=== PATIENT | female | born 2000 | race Caucasian/White ===

== ENCOUNTER → 2022-01-09 13:45 | Outpatient (ROUT) | payer OTHER, SELFPAY ==
[2022-01-09 16:47] LABS: COVID-19 CEPHEID PCR (VTM/NP) Negative (Negative)
== END ==
PROVIDERS: Visit Provider Otolaryngology
DX: J03.91 Acute recurrent tonsillitis, unspecified (principal); J35.01 Chronic tonsillitis; J36 Peritonsillar abscess; J35.1 Hypertrophy of tonsils; J98.8 Other specified respiratory disorders; Z20.822 Contact with and (suspected) exposure to COVID-19
CPT/HCPCS: U0003; U0005

== ENCOUNTER 2022-01-11 07:03 | Day surgery (SDC) | payer OTHER, SELFPAY ==
[2022-01-08 12:40] VITALS: BMI 26.9
[2022-01-11] VITALS (7 sets, daily range): BP systolic 105–138; BP diastolic 47–82; PULSE 70–91; RESP 14–21; TEMP 35.9–36.3; O2SAT 99–100; BMI 25.7
[2022-01-11] MEDS: LACTATED RINGERS 1,000 ML 42 ML IV (07:33)
--- NOTE | 2022-01-11 08:38 | PM.PREOP ---
Pre-operative Note Interval Note History & Physical reviewed/Exam performed by Physician: Yes Changes to H&P: No
--- NOTE | 2022-01-11 08:40 | PM.HP.1 ---
History of Present Illness History of Present Illness Date Patient Seen: 01/11/22 Time Patient Seen: 08:40 Chief complaint: SDC Narrative: She 21-year-old female smoker last seen in clinic 11/08/2021 with chronic tonsillitis recurrent acute tonsillitis tonsil stones tonsillar hypertrophy and respiratory obstruction, presents for tonsillectomy and possible adenoidectomy as outpatient. No interval health changes since last visit. Patient History Medical History Chronic tonsillitis Respiratory obstruction Tonsil stone Tonsillar hypertrophy Surgical History No pertinent past surgical history Family & Social History Tobacco & Substance use: Tobacco type e-cigarettes Smoking Status Current every day smoker alcohol intake current alcohol intake frequency a few times a week Substance Use Type does not use Meds Home Medications and Allergies Home Medications Medication Instructions Recorded Confirmed Type No Known Home Medications 01/08/22 01/11/22 History Allergies Allergy/AdvReac Type Severity Reaction Status Date / Time No Known Drug Allergies Allergy Verified 01/11/22 07:21 Review of Systems Review of Systems Narrative: Negative except as listed in the HPI Exam Vital Signs (past 8 hours): - 01/11/22 07:28 Temperature 96.7 F L Pulse Rate 91 H Respiratory Rate 16 Blood Pressure 115/80 Pulse Oximetry 100 Oxygen Delivery Method Room Air Oxygen Delivery Method Room Air Narrative Exam Narrative: Well-developed well-nourished female in no acute distress heart regular rate and rhythm without murmur lungs clear to auscultation bilaterally. Assessment & Plan Assessment & Plan narrative: Assessment recurrent acute tonsillitis, chronic tonsillitis, tonsil stones, tonsillar hypertrophy, respiratory obstruction Plan: Following discussion of the material risks benefits complications and alternatives, she elected to proceed with tonsillectomy and possible adenoidectomy as outpatient Time Spent With Patient Critical Care time: I spent a total of [] minutes of critical care time on this patient's care today; this time is exclusive of procedural time.
--- NOTE | 2022-01-11 08:43 | PM.OP.1 ---
Operative Date/Time/Diagnoses Date of procedure: 01/11/22 Time of procedure: 09:40 Pre-op diagnosis: Recurrent acute tonsillitis, chronic tonsillitis, tonsil stone, tonsillar hypertrophy, respiratory obstruction Post-op diagnosis: same Procedure & Clinicians Procedure: Tonsillectomy Same procedure as scheduled: Yes Indications: A 21-year-old female with the above diagnoses incompletely managed with medical therapy presents for the above procedures. Following discussion of the tear risks benefits complications and alternatives, she elected to proceed. Surgeon: Armanod Oliver Click Yes if Unassisted: Yes Anesthesia Type: General and Local Operative Notes Findings: 3+ tonsils, absent adenoids, intact palate, single uvula Estimated Blood Loss (mL): 10 Procedure in detail: Following identification and confirmation of consent the patient was brought to the operating room suite and placed in the supine position. General endotracheal anesthesia was administered. A head wrap, shoulder roll, and mouth gag were placed and a red rubber catheter was inserted through the nostril and out the mouth to retract the soft palate. No significant adenoid tissue was present. The left tonsil was retracted medially and suction electrocautery on a setting of 30 was used to dissect the tonsil in a subcapsular plane, followed by hemostasis with the same. This process was repeated on the right side with identical findings. The tonsillar fossae were superficially infiltrated bilaterally with a 1:1 mixture of 1% lidocaine and 0.5% Marcaine 1 to [id number] epinephrine. Mouth gag and rubber catheter were removed and the patient was extubated in the operating room and taken to the recovery room in stable condition without known complication. Complications: none Post-operative Condition: stable Disposition: same day surgery Plan for aftercare: Push fluids, alternate Tylenol and Advil every 3 hours for baseline pain control, oxycodone for breakthrough pain. Soft diet 2 full weeks, no heavy lifting or straining 2 weeks.
[2022-01-11] MEDS: LIDOCAINE 1% (PF) 5 ML INJ (09:19)
[2022-01-11] MEDS: BUPIVACAINE 0.5% W/ EPI (PF) 30 ML VIAL INJ (09:19)
[2022-01-11] MEDS: ACETAMINOPHEN 325 MG TABLET 650 MG PO (10:38)
[2022-01-11] MEDS: OXYCODONE IR 5 MG TABLET PO (10:38)
== END 2022-01-11 11:00 | disposition home or self-care (01) ==
PROVIDERS: Referring Provider Otolaryngology; Visit Provider Otolaryngology
PROC: (CPT 42826; principal; 2022-01-11 08:45)
DX: J03.91 Acute recurrent tonsillitis, unspecified (principal); J98.8 Other specified respiratory disorders
CPT/HCPCS: 42826; 81025; J0330; J1100; J2250; J2405; J2704; J3010

== ENCOUNTER 2022-01-15 18:30 | Emergency (ER) | payer OTHER, SELFPAY ==
--- NOTE | 2022-01-15 18:45 | ED_ITS ---
HPI - General Adult General Chief complaint: Recheck/Abnormal Lab/Rx Stated complaint: Recent tonsillectomy/bleeding today Time Seen by Provider: 01/15/22 18:30 History of Present Illness HPI narrative: 21F smoker with history of recent tonsillectomy done here at [facility] on presents by EMS for evaluation of a large amount of bleeding in her throat which medics state is about 300mL that had resolved prior to her arrival. She is not dizzy nor weak or lightheaded. She denies any fever or chills. She is had no cough or shortness of breath. She takes no blood thinners Related Data Home Medications Medication Instructions Recorded Confirmed No Known Home Medications 01/08/22 01/11/22 Allergies Allergy/AdvReac Type Severity Reaction Status Date / Time No Known Drug Allergies Allergy Verified 01/11/22 10:05 Review of Systems Review of Systems Narrative: GENERAL: Denies chills, fatigue, malaise, fever, sweats. HEENT: See HPI RESPIRATORY: Denies dyspnea, cough, wheezing, hemoptysis, sputum. CARDIOVASCULAR: Denies chest pain, palpitations, orthopnea, edema, GASTROINTESTINAL: Denies nausea, vomiting, abdominal pain, diarrhea, constipation, melena. : Denies dysuria, frequency, incontinence, hematuria, urinary retention. MUSCULOSKELETAL: denies weakness, joint pain, or bony pain SKIN: Denies rash, skin lesions, or other NEUROLOGIC: Denies weakness, headache, numbness, change in speech, confusion, seizures, incoordination. PSYCHIATRIC: No concerning psychosocial issues. 12 point review of systems is negative except for those stated above Patient History Medical History Chronic tonsillitis Respiratory obstruction Tonsil stone Tonsillar hypertrophy Surgical History No pertinent past surgical history Social History Smoking Status: Current every day smoker alcohol intake: current Smoking Status: Current every day smoker alcohol intake frequency: a few times a week Substance Use Type: does not use Exam Narrative Exam Narrative: GENERAL: [21] year old patient appears stated age. Well-developed patient, in mild distress. Holding an emesis bag with small amount of fresh blood HEAD: Atraumatic. Normocephalic. EYES: Pupils equal round and reactive. Extraocular motions intact. No scleral icterus. No injection or drainage. ENT: Fresh clots noted on tonsillar bed, no obvious active bleeding Nose without bleeding, purulent drainage. Throat without erythema, tonsillar hypertrophy or exudate. Airway patent. NECK: Trachea midline. Non tender CARDIOVASCULAR: Regular rate and rhythm without murmurs, gallops, or rubs. RESPIRATORY: Clear to auscultation. Breath sounds equal bilaterally. No wheezes, rales, or rhonchi. GASTROINTESTINAL: Abdomen soft, non-tender, nondistended. EXTREMITIES: No edema or joint tenderness. BACK: Nontender without deformity or crepitance. No flank tenderness. NEURO: AOx3. SKIN: No rash or erythema of visible areas Initial Vital Signs Initial Vital Signs: Vital Signs Temperature 97.7 F 01/15/22 18:46 Pulse Rate 76 01/15/22 18:46 Respiratory Rate 18 01/15/22 18:46 Blood Pressure 97/58 L 01/15/22 18:46 Pulse Oximetry 100 01/15/22 18:46 Oxygen Delivery Method 01/15/22 18:46 Course Orders Ordered: Discontinued Medications Tranexamic Acid (Tranexamic Acid 1,000 Mg Vial) 1,000 mg MM NOW ONE Stop: 01/15/22 18:32 Last Admin: 01/15/22 19:46 Dose: 1,000 mg Documented By: Reevaluation(s) Reevaluation #1: Patient has completed aerosolization of TXA, labs repeated Reevaluation #2: Repeat H&H stable, no ongoing bleeding for the duration of her visit Consultations Consultation #1: Discussed with on-call ENT, sure the opinion that no intervention needed. Requests discharge and encouraged his her to follow up with local ENT in the morning Vital Signs Vital signs: Vital Signs - 8 hr 01/15/22 23:18 Pulse Rate 78 Respiratory Rate 16 Blood Pressure 115/74 Pulse Oximetry 99 Oxygen Delivery Method Room Air Medical Decision Making Lab Data Result diagrams: 01/15/22 20:35 01/15/22 18:57 Labs: Lab Results 01/15/22 01/15/22 01/15/22 Range/Units 18:57 18:57 18:57 WBC 7.1 (4.5-11.0) X10^3/uL RBC 3.88 L (4.0-5.2) X10^6/uL Hgb 10.7 L (12.0-16.0) g/dL Hct 31.6 L (36-46) % MCV 81.6 (80-100) fL MCH 27.5 (26-34) PG MCHC 33.7 (30-36) % RDW 12.9 (11.6-14.8) % Plt Count 247 (150-400) X10^3/uL Neut % (Auto) 73.3 (50-75) % Lymph % (Auto) 18.4 L (25-40) % Faulkner % (Auto) 6.7 (3-14) % Eos % (Auto) 1.0 L (2-4) % Baso % (Auto) 0.6 (0-2) % Neut # (Auto) 5200 (7191-5297) /uL Lymph # (Auto) 1300 (4028-1286) /uL Faulkner # (Auto) 500 (0-900) /uL Eos # (Auto) 100 (0-450) /uL Baso # (Auto) 0 (0-100) /uL Sodium 137 (137-145) mmol/L Potassium 4.0 (3.4-5.1) mmol/L Chloride 104 (98-107) mmol/L Carbon Dioxide 24 (22-32) mmol/L BUN 11 (7-17) mg/dL Creatinine 0.70 (0.52-1.04) mg/dL Estimated GFR > 60 (>60) mL/min BUN/Creatinine Ratio 15.7 (6-22) Glucose 81 (70-100) mg/dL Calcium 8.5 (8.4-10.2) mg/dL Blood Type O Positive Antibody Screen Negative 01/15/22 Range/Units 20:35 WBC (4.5-11.0) X10^3/uL RBC (4.0-5.2) X10^6/uL Hgb 10.4 L (12.0-16.0) g/dL Hct 30.2 L (36-46) % MCV (80-100) fL MCH (26-34) PG MCHC (30-36) % RDW (11.6-14.8) % Plt Count (150-400) X10^3/uL Neut % (Auto) (50-75) % Lymph % (Auto) (25-40) % Faulkner % (Auto) (3-14) % Eos % (Auto) (2-4) % Baso % (Auto) (0-2) % Neut # (Auto) (9427-6343) /uL Lymph # (Auto) (0818-0432) /uL Faulkner # (Auto) (0-900) /uL Eos # (Auto) (0-450) /uL Baso # (Auto) (0-100) /uL Sodium (137-145) mmol/L Potassium (3.4-5.1) mmol/L Chloride (98-107) mmol/L Carbon Dioxide (22-32) mmol/L BUN (7-17) mg/dL Creatinine (0.52-1.04) mg/dL Estimated GFR (>60) mL/min BUN/Creatinine Ratio (6-22) Glucose (70-100) mg/dL Calcium (8.4-10.2) mg/dL Blood Type Antibody Screen Discharge Plan Departure Patient Disposition: Home Clinical Impression: Hemorrhage from tonsillar bed Instructions: DI for Post-Surgical Bleeding Activity Restrictions/Additional Instructions: *You have been diagnosed with [post tonsillectomy bleeding. As we discussed your history and physical exam are very reassuring and after multiple hours of observation the bleeding did not recur. Your blood counts were stable and did not change in any meaningful way over the course of her visit. I have discussed your visit with the on-call Ear Nose and Throat surgeon that works with Dr. Oliver] *What to do: *Please continue to take your regular medications as directed. [ ] New medication prescriptions sent to your pharmacy: [ ] [ ] New medication written as a paper prescription [ ] No new medications given *Please follow up with Dr. Oliver, call tomorrow morning for an appointment. Let them know you were seen in the Emergency Department and that we ask that you be seen in follow up. We will electronically transmit a record of today's note *Return to Emergency Department if you should have any new, worsening or concerning symptoms, such as [fever greater than 101 F, shaking chills, wors ening pain, persistent vomiting or other bothersome symptoms] Prescriptions: No Action No Known Home Medications Visit Report Forms: Patient Portal/API
[2022-01-15 18:46] VITALS: BP 97/58; PULSE 76; RESP 18; TEMP 36.5; O2SAT 100
[2022-01-15 19:07] LABS: Add Manual Diff / Slide Review NO; Basophils Absolute Auto 0 /uL (0-100); Basophils Percent Auto 0.6 % (0-2); Eosinophils Absolute Auto 100 /uL (0-450); Hematocrit 31.6 % (36-46); Hemoglobin 10.7 g/dL (12.0-16.0); Lymphocytes Absolute Auto 1300 /uL (1100-4500); Lymphocytes Percent Auto 18.4 % (25-40); Mean Corpuscular HGB Conc 33.7 % (30-36); Mean Corpuscular Hemoglobin 27.5 PG (26-34); Mean Corpuscular Volume 81.6 fL (80-100); Monocytes Absolute Auto 500 /uL (0-900); Monocytes Percent Auto 6.7 % (3-14); Neutrophils Absolute Auto 5200 /uL (1500-7000); Neutrophils Percent Auto 73.3 % (50-75); Platelet Count 247 X10^3/uL (150-400); Red Blood Cell Count 3.88 X10^6/uL (4.0-5.2); Red Cell Distribution Width 12.9 % (11.6-14.8); White Blood Cell Count 7.1 X10^3/uL (4.5-11.0)
[2022-01-15 19:18] LABS: BUN Creatinine Ratio 15.7 (6-22); Blood Urea Nitrogen 11 mg/dL (7-17); Calcium 8.5 mg/dL (8.4-10.2); Carbon Dioxide 24 mmol/L (22-32); Chloride 104 mmol/L (98-107); Estimated Glomerular Filt Rate > 60 mL/min (>60); Glucose 81 mg/dL (70-100); HEMOLYSIS 36 (0-50); Sodium 137 mmol/L (137-145)
[2022-01-15] MEDS: TRANEXAMIC ACID 1,000 MG VIAL 1000 MG MM (19:46)
[2022-01-15 20:43] VITALS: BP 110/57; PULSE 63; RESP 16; O2SAT 98
[2022-01-15 21:05] LABS: Hematocrit 30.2 % (36-46); Hemoglobin 10.4 g/dL (12.0-16.0)
--- NOTE | 2022-01-15 21:17 | PC.NURSE ---
Patient appears more relaxed. No vomiting. She is sitting upright, able to swallow sputum without difficulty. Friend at bedside.
[2022-01-15 22:15] VITALS: BP 110/56; PULSE 67; O2SAT 99
[2022-01-15 22:43] VITALS: BP 106/55; PULSE 79; RESP 16; O2SAT 100
[2022-01-15 23:18] VITALS: BP 115/74; PULSE 78; RESP 16; O2SAT 99
== END 2022-01-15 23:19 | disposition home or self-care (01) ==
PROVIDERS: Emergency Provider Emergency Medicine
DX: J95.830 Postprocedural hemorrhage of a respiratory system organ or structure following a respiratory system procedure (principal); F17.290 Nicotine dependence, other tobacco product, uncomplicated
CPT/HCPCS: 36415; 80048; 85014; 85018; 85025; 86850; 86900; 86901; 99283

== ENCOUNTER → 2023-04-11 08:52 | Outpatient (CLI) | payer OTHER, SELFPAY ==
[2023-04-11 10:16] LABS: Appearance Urine UA SL CLOUDY; Bilirubin Urine UA NEGATIVE (NEGATIVE); Color Urine UA YELLOW; Glucose Urine UA NEGATIVE (Negative); Ketones Urine UA NEGATIVE (NEGATIVE); Leukocyte Esterase Urine UA 2+ (NEGATIVE); Nitrite Urine UA NEGATIVE (Negative); Occult Blood Urine UA TRACE-INTACT (Negative); Protein Urine UA TRACE (Negative); Urobilinogen Urine UA 0.2 E.U./dL (0.2)
[2023-04-11 10:24] LABS: Add Manual Diff / Slide Review NO; Basophils Absolute Auto 0 /uL (0-100); Basophils Percent Auto 0.3 % (0-2); Eosinophils Absolute Auto 100 /uL (0-450); Eosinophils Percent Auto 0.9 % (2-4); Hematocrit 38.7 % (36-46); Hemoglobin 13.2 g/dL (12.0-16.0); Lymphocytes Absolute Auto 1500 /uL (1100-4500); Lymphocytes Percent Auto 15.8 % (25-40); Mean Corpuscular HGB Conc 34.1 % (30-36); Mean Corpuscular Hemoglobin 28.2 PG (26-34); Mean Corpuscular Volume 82.7 fL (80-100); Monocytes Absolute Auto 600 /uL (0-900); Monocytes Percent Auto 6.1 % (3-14); Neutrophils Absolute Auto 7400 /uL (1500-7000); Neutrophils Percent Auto 76.9 % (50-75); Platelet Count 300 X10^3/uL (150-400); Red Blood Cell Count 4.68 X10^6/uL (4.0-5.2); Red Cell Distribution Width 14.1 % (11.6-14.8); White Blood Cell Count 9.6 X10^3/uL (4.5-11.0)
[2023-04-11 10:30] LABS: Bacteria Urine Many (>30); Culture Indicated Urine Cult Not Indicated; RBC Urine None Seen (0-5/HPF); Squamous Epithelial Cell Urine 10-30 /HPF (0-5/HPF); WBC Urine 1-5/HPF (0-5/HPF)
[2023-04-11 11:29] LABS: Urine N gonorrhoeae NOT DETECTED
[2023-04-11 11:30] LABS: Urine Chlamydia NOT DETECTED
[2023-04-11 11:38] LABS: Hepatitis B Surface Antigen NEGATIVE s/c (NEGATIVE); Rubella Antibody IgG 14.8 IU/mL (>15)
[2023-04-11 11:47] LABS: HIV 1 & 2 Ab/Ag 4th Gen Combo NEGATIVE (NEGATIVE); Hep C Virus Ab w/Reflex Quant NEGATIVE s/c (NEGATIVE)
[2023-04-12 08:12] LABS: RPR Screen Non Reactive (Non Reactive)
[2023-04-12 08:36] LABS: Varicella IgG Antibody 665 index (Immune >165)
== END ==
LOC: LAB 08:54
PROVIDERS: Referring Provider Family Medicine; Visit Provider Family Medicine
DX: Z34.01 Encounter for supervision of normal first pregnancy, first trimester (principal)
CPT/HCPCS: 36415; 80055; 81003; 81015; 86787; 86803; 86850; 86900; 86901; 87086; 87389; 87491; 87591

== ENCOUNTER → 2023-06-04 11:04 | Outpatient (CLI) | payer OTHER, SELFPAY ==
[2023-06-07 01:06] LABS: AFP, Serum 71.5 ng/mL (.); Estriol, Free 2.57 ng/mL (.); Inhibin A, Dimeric 343.92 pg/mL (.); Inhibin A, MoM 2.54 (.); Maternal Ethnicity Caucasian (.); Maternal Weight 196 lbs (.); Number of Fetuses No (.); OSBR Risk 1 IN 1442 (.); Results Report (.); Test Results *Screen Negative* (.); hCG, MoM 1.17 (.); hCG, Serum 27186 mIU/mL (.)
== END ==
PROVIDERS: Referring Provider Family Medicine; Visit Provider Family Medicine
DX: Z34.00 Encounter for supervision of normal first pregnancy, unspecified trimester (principal)
CPT/HCPCS: 36415; 82105; 82677; 84702; 86336

== ENCOUNTER → 2023-06-14 10:07 | Outpatient (CLI) | payer OTHER, SELFPAY ==
--- NOTE | 2023-06-14 10:07 | DI.US.S_ITS ---
PROCEDURE: US OB >= 14 WEEKS FETUS INDICATIONS: anatomy OUTSIDE/PRIOR DATING DATA: Last menstrual period (LMP): Unknown. LMP-based estimated date of delivery (DANIEL): 10/24/2023. First dating scan (date and location): 04/08/2019 for. Estimated date of delivery (DANIEL) from first dating scan: 11/03/2023. The calculations are made using the ultrasound DANIEL of 11/03/2023. TECHNIQUE: Real-time scanning was performed of the fetus, with image documentation and biometric measurements. Endovaginal scanning: Not performed. COMPARISON: None. FINDINGS: General: A single living intrauterine gestation is present. Presentation: Breech. Placenta: Placental position is posterior, without previa. Amniotic fluid index: 7.9 cm, normal range is 5-24 cm. Single deepest vertical pocket is 2.8 cm. heart rate: 144 beats per minute. Maternal cervical canal: 3.8 cm long. Normal lower limit is 2.5 cm. biometrics: Biparietal diameter: 4.5 cm, 19 weeks 4 days Head circumference: 17.8 cm, 20 weeks 2 days Abdominal circumference: 14.4 cm, 19 weeks 5 days Femur length: 3.2 cm, 19 weeks 6 days Clinically estimated gestational age: 19 weeks 5 days Composite gestational age from present scan: 19 weeks 6 days Estimated weight and percentile: 317 g, 54th percentile Anatomic survey: Neuro: Ventricles are non-dilated at less than 10 mm. Cisterna magna is normal at 3-11 mm. Cerebellum is normal in size and morphology. Nuchal skin fold: Normal at less than 6 mm between 14-21 weeks gestational age. Face: Nose and lips, facial profile are normal. Spine: No evidence for spina bifida. Heart: 4-chambered heart is present, with normal ventricular outflow tracts. Diaphragm: Diaphragm is intact. Stomach: Left-sided stomach is present. Kidneys: No hydronephrosis. Normal is less than 5 mm in 2nd trimester, less than 7 mm in 3rd trimester. Cord: 3-vessel cord has orthotopic insertion. Bladder: Normal in size. Extremities: All 4 extremities identified. IMPRESSION: 1. Romo living intrauterine at 19 weeks 6 days based on today's ultrasound. This is concordant with the prior dating. Fetus is in the 54th percentile for weight. 2. Normal placenta. Amniotic fluid index 7.9 cm. Lower end of normal. 3. Normal and complete anatomic survey. We strive to produce accurate, complete, and clear reports of imaging services. To assist us in improving patient care, this report was composed using standard report templates and voice recognition software. Therefore, it may contain abnormal punctuation, insertions and/or omissions. Occasional wrong-word or sound-alike substitutions may occur. Though we review the report and make efforts to correct it, we do recommend that the report be read carefully in proper context to recognize any text inaccuracies. Dictated by: Durga Garner M.D. on 06/14/2023 at 13:54 Approved by: Durga Garner M.D. on 06/14/2023 at 14:04
== END ==
LOC: US 10:07
PROVIDERS: Referring Provider Family Medicine; Visit Provider Family Medicine
DX: Z34.02 Encounter for supervision of normal first pregnancy, second trimester (principal); Z3A.19 19 weeks gestation of pregnancy
CPT/HCPCS: 76811

== ENCOUNTER → 2023-08-13 09:27 | Outpatient (CLI) | payer OTHER, SELFPAY ==
[2023-08-13 11:32] LABS: Add Manual Diff / Slide Review NO; Basophils Absolute Auto 0 /uL (0-100); Basophils Percent Auto 0.2 % (0-2); Eosinophils Absolute Auto 100 /uL (0-450); Eosinophils Percent Auto 1.2 % (2-4); Hematocrit 30.6 % (36-46); Hemoglobin 10.5 g/dL (12.0-16.0); Lymphocytes Absolute Auto 1300 /uL (1100-4500); Mean Corpuscular HGB Conc 34.3 % (30-36); Mean Corpuscular Hemoglobin 29.2 PG (26-34); Mean Corpuscular Volume 85.1 fL (80-100); Monocytes Absolute Auto 800 /uL (0-900); Monocytes Percent Auto 6.7 % (3-14); Neutrophils Absolute Auto 9700 /uL (1500-7000); Neutrophils Percent Auto 80.9 % (50-75); Platelet Count 258 X10^3/uL (150-400); Red Cell Distribution Width 13.6 % (11.6-14.8)
[2023-08-13 11:45] LABS: GTT (PREG) 1 Hour PP 50gm Dose 137 mg/dL (76-139)
== END ==
PROVIDERS: Referring Provider Family Medicine; Visit Provider Family Medicine
DX: Z34.00 Encounter for supervision of normal first pregnancy, unspecified trimester (principal)
CPT/HCPCS: 36415; 82950; 85025; 86850

== ENCOUNTER → 2023-08-19 08:40 | Outpatient (CLI) | payer OTHER, SELFPAY ==
--- NOTE | 2023-08-19 08:41 | DI.US.S_ITS ---
PROCEDURE: US OB LIMITED INDICATIONS: growth u/s for size > dates OUTSIDE/PRIOR DATING DATA: Last menstrual period (LMP): 01/27/2026 LMP-based estimated date of delivery (DANIEL): 10/24/2023 First dating scan (date and location): 04/08/2023 Estimated date of delivery (DANIEL) from first dating scan: 11/03/2023. The calculations are made using the working DANIEL of 07/23. TECHNIQUE: Real-time scanning was performed of the fetus, with image documentation. Endovaginal scanning: None COMPARISON: None. FINDINGS: A single living intrauterine gestation is present. Presentation: Breech. Placenta: Placental position is posterior fundal, without previa. Amniotic fluid index: 23.6 cm, normal range is 5-24 cm. Single deepest vertical pocket is 7.4 cm. heart rate: 140 beats per minute. Maternal cervical canal: 3.5 cm long. Normal lower limit is 2.5 cm. BPD: 7.3 cm, 29 week 2 day HC: 27.8 cm, 30 week 3 day AC: 26.7 cm, 30 week 5 day FL: 5.8 cm, 30 week 1 day EFW: 1574 g, 83 percentile Clinically estimated gestational age: 29 week 1 day Estimated gestational age from initial scan: 30 week 1 day. IMPRESSION: Single live intrauterine consistent with a 30 week 1 day gestation by current ultrasound. Polyhydramnios. JUAN 23.6 cm, 95th percentile Approved by: Harry Schultz M.D. on 08/19/2023 at 15:46
== END ==
PROVIDERS: Referring Provider Family Medicine; Visit Provider Family Medicine
DX: O40.3XX0 Polyhydramnios, third trimester, not applicable or unspecified (principal); Z3A.30 30 weeks gestation of pregnancy
CPT/HCPCS: 76815

== ENCOUNTER 2023-08-20 09:54 | Outpatient (CLI) | payer OTHER, SELFPAY ==
--- NOTE | 2023-08-20 10:18 | P.TNLD_ITS ---
Visit Information Visit Information Date of evaluation: 08/20/23 Primary OB Provider: Marivel Pablo Comments/Additional reasons for admission: 22yo at 29w2d here for NST for polyhydramnios. [facility] Medical History (Updated 08/20/23 @ 10:16 by Marivel Pablo MD) Anemia (~2022) Respiratory obstruction Tonsillar hypertrophy Tonsil stone Chronic tonsillitis Surgical History (Updated 04/15/23 @ 18:40 by Marnie Madsen) Anesthesia History of tonsillectomy (~12/2021) Family History Mother Mini's thyroiditis Rheumatoid arthritis Grandmother Brain aneurysm History of skin graft Non-healing surgical wound Social History marital status: number of children: 0 household members: spouse lives independently: Yes caregiver/support person: No housing: apartment pets and animals: Yes (2 cats, will wear gloves when managing litter box) education level: college (some college) occupational status: employed (active duty [employer]) current occupational exposures/hazards: Yes (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 ) special vj needs: No travel history: recent (Domestic only) seatbelt use: always helmet use: Yes water heater temp set < 120 deg: Yes working smoke detector in home: Yes fire extinguisher in home: No carbon monox detector in home: Yes firearms in home: No do you feel safe at home: Yes Smoking Status: Former smoker (Quit when she learned that she was ) Tobacco: How many years used: 7 (vaping since age 15) second hand exposure: Yes ( also trying to quit vaping) alcohol intake: former (occasionally when not ) substance use type: does not use during the past year weight has: increased > 10 lbs well-balanced diet: rarely or never (does not eat vegetables, not willing to try to improve this) daily servings fruits/ve-1 (fruit only) caffeine: Yes (~1 cup coffee in AM) Type(s) of exercise: none Evaluation Evaluation Baseline heart rate: 130 Variability: Moderate (11-25) monitor accelerations: Present Monitor Decelerations: Absent Category of Tracing: Reactive Diagnosis, Plan/Disposition Final Diagnosis (1) Polyhydramnios: Status: Acute Plan/Disposition Plan: 22yo at 29w2d here for NST for polyhydramnios. NST reactive. Continue testing. Stable for d/c home. OB Disposition: home
== END 2023-08-20 10:36 | disposition home or self-care (01) ==
LOC: OB 08-21 10:31
PROVIDERS: Referring Provider Family Medicine; Visit Provider Family Medicine
DX: O40.3XX0 Polyhydramnios, third trimester, not applicable or unspecified (principal); Z3A.29 29 weeks gestation of pregnancy
CPT/HCPCS: 59025; G0378; G0379

== ENCOUNTER → 2023-08-22 09:51 | Outpatient (CLI) | payer OTHER, SELFPAY ==
[2023-08-22 11:46] LABS: Glucose Fasting Gestational 83 mg/dL (76-95)
[2023-08-22 13:13] LABS: Glucose Tol Interp,Gestational INTERPRETATION
[2023-08-22 13:22] LABS: Glucose 1 Hour Gest 196 mg/dL (76-180)
[2023-08-22 13:25] LABS: Glucose 2 Hour Gest 185 mg/dL (76-155)
[2023-08-22 15:02] LABS: Glucose 3 Hour Gest 82 mg/dL (76-140)
== END ==
PROVIDERS: Referring Provider Family Medicine; Visit Provider Family Medicine
DX: O99.810 Abnormal glucose complicating pregnancy (principal)
CPT/HCPCS: 36415; 82951; 82952

== ENCOUNTER 2023-08-25 10:22 | Observation (INO) | payer OTHER, SELFPAY ==
--- NOTE | 2023-08-25 11:01 | DI.US.S_ITS ---
PROCEDURE: US OB BIOPHYSICAL PROFILE INDICATIONS: Decreased movement, GDM, polyhydramnios at GA 30+0 wks OUTSIDE/PRIOR DATING DATA: Last menstrual period (LMP): Unknown LMP-based estimated date of delivery (DANIEL): 10/24/2023. First dating scan (date and location): 04/08/2023. Estimated date of delivery (DANIEL) from first dating scan: 11/03/2023. The calculations are made using the working DANIEL of 11/03/2023. TECHNIQUE: Real-time scanning was performed of the fetus, with image documentation and biometric measurements. Biophysical profile was also obtained. Endovaginal scanning: Not performed COMPARISON: Ob ultrasound 08/19/2023, 06/14/2023 FINDINGS: General: A single living intrauterine gestation is present. Presentation: Breech. Placenta: Placental position is posterior fundal , without previa. Amniotic fluid index: 20.2 cm, normal range is 5-24 cm. Single deepest vertical pocket is 5.7 cm. heart rate: 135 beats per minute. Maternal cervical canal: 4.1 cm long, closed. Normal lower limit is 2.5 cm. biometrics: Clinically estimated gestational age: 30 weeks, 0 days Biophysical profile: Tone: 2 points. Movement: 2 points. Respiration: 0 points. Largest pocket of fluid: 2 points. Umbilical artery Doppler: Normal umbilical artery systolic to diastolic ratios. IMPRESSION: Single intrauterine gestation in breech presentation with estimated gestational age of 30 weeks, 0 days. JUAN within normal limits. Biophysical profile score of 6/8 (respirations not visualized). Recommend clinical follow-up. Approved by: Carmela Hernandes M.D.,Ph.D. on 08/25/2023 at 14:00
--- NOTE | 2023-08-25 12:48 | P.TNLD_ITS ---
Visit Information Visit Information Date of evaluation: 08/25/23 Primary OB Provider: Marivel Pablo On-call OB Provider: Donn Sheldon Reason for Evaluation: Yes non-stress test non-stress test reason: decreased movement Comments/Additional reasons for admission: 22-year-old G1 at GA 30+ 0 weeks presenting for decreased movement. Called after hours physician line due to concern for feeling baby move as much as usual since last night. Tried drinking some juice and laying down, only felt 1 or 2 subtle movements this morning so was advised to come in for further evaluation. She denies any vaginal bleeding, leakage of fluid, abdominal pain, pelvic discomfort/contractions, vaginal discharge. complicated by polyhydramnios and recent diagnosis of gestational diabetes with abnormal 3 hour GTT. Current medication includes daily vitamin. [facility] Medical History (Updated 08/25/23 @ 12:54 by Donn Sheldon MD) Anemia (~2022) Respiratory obstruction Tonsillar hypertrophy Tonsil stone Chronic tonsillitis Surgical History (Updated 04/15/23 @ 18:40 by Marnie Madsen) Anesthesia History of tonsillectomy (~12/2021) Family History Mother Mini's thyroiditis Rheumatoid arthritis Grandmother Brain aneurysm History of skin graft Non-healing surgical wound Social History marital status: number of children: 0 household members: spouse lives independently: Yes caregiver/support person: No housing: apartment pets and animals: Yes (2 cats, will wear gloves when managing litter box) education level: college (some college) occupational status: employed (active duty [employer]) current occupational exposures/hazards: Yes (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 ) special vj needs: No travel history: recent (Domestic only) seatbelt use: always helmet use: Yes water heater temp set < 120 deg: Yes working smoke detector in home: Yes fire extinguisher in home: No carbon monox detector in home: Yes firearms in home: No do you feel safe at home: Yes Smoking Status: Former smoker (Quit when she learned that she was ) Tobacco: How many years used: 7 (vaping since age 15) second hand exposure: Yes ( also trying to quit vaping) alcohol intake: former (occasionally when not ) substance use type: does not use during the past year weight has: increased > 10 lbs well-balanced diet: rarely or never (does not eat vegetables, not willing to try to improve this) daily servings fruits/ve-1 (fruit only) caffeine: Yes (~1 cup coffee in AM) Type(s) of exercise: none Review of Systems Review of Systems ROS: Yes All systems reviewed with the patient and are negative except as otherwise documented Objective Imaging US Biophysical Profile: Radiologist's impression: FINDINGS: General: A single living intrauterine gestation is present. Presentation: Breech. Placenta: Placental position is posterior fundal , without previa. Amniotic fluid index: 20.2 cm, normal range is 5-24 cm. Single deepest vertical pocket is 5.7 cm. heart rate: 135 beats per minute. Maternal cervical canal: 4.1 cm long, closed. Normal lower limit is 2.5 cm. biometrics: Clinically estimated gestational age: 30 weeks, 0 days Biophysical profile: Tone: 2 points. Movement: 2 points. Respiration: 0 points. Largest pocket of fluid: 2 points. Umbilical artery Doppler: Normal umbilical artery systolic to diastolic ratios. IMPRESSION: Single intrauterine gestation in breech presentation with estimated gestational age of 30 weeks, 0 days. JUAN within normal limits. Biophysical profile score of 6/8 (respirations not visualized). Recommend clinical follow-up. Approved by: Carmela Hernandes M.D.,Ph.D. on 08/25/2023 at 14:00 Evaluation Evaluation Baseline heart rate: 140 Variability: Moderate (11-25) monitor accelerations: Present Monitor Decelerations: Variable Category of Tracing: Reactive Status: Category l Diagnosis, Plan/Disposition Final Diagnosis (1) Decreased movement affecting management of in third trimester: Status: Acute (2) Polyhydramnios: Status: Acute (3) Gestational diabetes mellitus (GDM): Status: Acute Plan/Disposition Plan: BPP 8/10 (no respirations visualized), NST reactive for GA with appropriate 10x10 accelerations. Discussed normal sleep/wake cycles and normal movements across gestational ages, with the expectation that movement we will be more subtle as progresses due to less room for baby to move. Discharge home with return precautions for recurrence of decreased movement, signs/symptoms of labor. Follow-up with primary OB provider as scheduled. OB Disposition: home
== END 2023-08-25 13:00 | disposition home or self-care (01) ==
PROVIDERS: Admitting Provider Family Medicine; Referring Provider Family Medicine; Visit Provider Family Medicine
DX: O36.8130 Decreased fetal movements, third trimester, not applicable or unspecified (principal); O24.419 Gestational diabetes mellitus in pregnancy, unspecified control; O40.3XX0 Polyhydramnios, third trimester, not applicable or unspecified; Z3A.30 30 weeks gestation of pregnancy
CPT/HCPCS: 59025; 59050; 76819; 93975; G0378; G0379

== ENCOUNTER 2023-08-27 09:46 | Outpatient (CLI) | payer OTHER, SELFPAY | END 2023-08-27 10:42 | disposition home or self-care (01) | LOC: OB 08-28 11:44 | PROVIDERS: Referring Provider Family Medicine; Visit Provider Family Medicine | DX: O24.419 Gestational diabetes mellitus in pregnancy, unspecified control (principal); O40.3XX0 Polyhydramnios, third trimester, not applicable or unspecified; Z3A.30 30 weeks gestation of pregnancy | CPT/HCPCS: 59025; G0378; G0379 ==

== ENCOUNTER → 2023-08-30 14:15 | Outpatient (CLI) | payer OTHER, SELFPAY ==
--- NOTE | 2023-08-30 17:29 | DIAB.GDA ---
Addendum entered by Yessica Heller 09/06/23 15:10: Called pt due to pretty consistent elevations postprandial. FBG all in range. High CHO intake at meals impacting BG. Reports feeling hungry after portioning meals and then snacking on higher CHO foods, ie cereal. Limited veggie intake. Reviewed portion recs and strategies for satiety and spacing out CHO. F/u 1 week. Original Note: Initial Gestational Diabetes Assessment Name: Awilda Tony Date: 08/30/23 Time: 240-330p Dx: Gestational Diabetes Provider: Samy DAINEL: 11/03/23 Weeks: Awilda presents for GDM visit. Reports limited veggie intake. Taking PNV gummy without iron. Low Hct last labs. Endorses fatigue. Denies any pica symptoms. Reports GDM hx with mother's with her sister. Diet recall indicates pretty high CHO intake at some meals, 55g CHO at breakfast but pc number in range unless she adds more CHO to this breakfast. Some elevations with potluck, chipotle, or chocolate milk. Works for [employer]. also and likely to be gone during . It's a boy! Diet Recall: 10-11a: waffles x 2, 2 TBS syrup OR eggs and hines OR romanian yogurt with granola 130-2p: leftovers 5p: 1.5c fruit and 10 crackers 8p: protein, potatoes x 1/2c or rice x 3/4c or mac n cheese x 1c 80oz water Anthropometrics: Ht: 68 Wt: 218# last OB 08/20/23 Prepregnancy wt: 190# Physical Activity: No program. Sometimes walks at work. Self-Monitoring Blood Glucose: Checking FBG and 2 hour pc. FBG in range. Some elevations >120mg/dl after meals. Date Pre Post Pre Post Pre Post HS 08/24 08/25 87 08/26 79 122 130 163 08/27 89 106 87 110 08/27 79 123 101 114 08/28 73 106 135 08/29 106 Diabetes Medications: None Pertinent Labs: Screen 137; OGTT 83, 196H, 185H, 82 Nutrition Rx: Carbohydrates: Meal: 45-g lunch and dinner; 30-45g breakfast Snack: 15-30g Nutrition Diagnosis: Altered nutrition related lab value r/t GDM dx aeb recent OGTT Inadequate iron intake r/t necessitating increased needs, no iron in PNV aeb low Hct and pt report Food and nutrition related knowledge deficit r/t new dx GDM aeb OGTT and diet recall Intervention: This participant was very receptive. Provided appropriate educational handouts. Discussed the following topics: GDM pathophysiology and impact of hyperglycemia on mom and baby Risk for T2DM for mom and baby in the future Ways to reduce risk T2DM Plate Method, meal timing, carb counting, pairing macronutrients and spreading out CHO for better BG management Blood glucose goals (FBG: <95 and 2 hour <120 mg/dL); importance of checking 4x per day (FBG and pc) Impact of macronutrients on blood glucose Recommended servings for carbohydrates at meals and snacks Brainstormed appropriate meal plan based on her food preferences Iron supplement and/or switching to PNV with iron Strategies of increasing veggies she enjoys. Role of physical activity and following provider guidelines for safety Goals: Walk at work Look for iron supplement or switch to PNV with iron Add veggies 1-2x per day Stick to 45g CHO at meals Add protein to breakfast Follow-up: MICHAEL UNDERWOOD follow-up in one week via messaging for BG check and 2 weeks for 1:1 Yessica Heller RDN, KJ Certified Diabetes Care and [employer] T: [phone] F: [phone] [email or web address] Thank you for this referral
== END ==
LOC: DIET 14:16
PROVIDERS: Referring Provider Family Medicine
DX: O24.419 Gestational diabetes mellitus in pregnancy, unspecified control (principal); Z3A.30 30 weeks gestation of pregnancy; Z71.3 Dietary counseling and surveillance
CPT/HCPCS: 97802

== ENCOUNTER 2023-09-03 12:14 | Observation (INO) | payer OTHER, SELFPAY ==
--- NOTE | 2023-09-03 12:32 | PM.OBTRLD ---
Visit Information Visit Information Date of evaluation: 09/03/23 Primary OB Provider: Marivel Pablo Comments/Additional reasons for admission: 22yo at 31w2d here for NST for polyhydramnios. [facility] Medical History (Updated 09/03/23 @ 15:13 by Marivel Pablo MD) Anemia (~2022) Respiratory obstruction Tonsillar hypertrophy Tonsil stone Chronic tonsillitis Surgical History (Updated 04/15/23 @ 18:40 by Marnie Madsen) Anesthesia History of tonsillectomy (~12/2021) Family History Mother Mini's thyroiditis Rheumatoid arthritis Grandmother Brain aneurysm History of skin graft Non-healing surgical wound Social History marital status: number of children: 0 household members: spouse lives independently: Yes caregiver/support person: No housing: apartment pets and animals: Yes (2 cats, will wear gloves when managing litter box) education level: college (some college) occupational status: employed (active duty [employer]) current occupational exposures/hazards: Yes (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 ) special vj needs: No travel history: recent (Domestic only) seatbelt use: always helmet use: Yes water heater temp set < 120 deg: Yes working smoke detector in home: Yes fire extinguisher in home: No carbon monox detector in home: Yes firearms in home: No do you feel safe at home: Yes Smoking Status: Former smoker (Quit when she learned that she was ) Tobacco: How many years used: 7 (vaping since age 15) second hand exposure: Yes ( also trying to quit vaping) alcohol intake: former (occasionally when not ) substance use type: does not use during the past year weight has: increased > 10 lbs well-balanced diet: rarely or never (does not eat vegetables, not willing to try to improve this) daily servings fruits/ve-1 (fruit only) caffeine: Yes (~1 cup coffee in AM) Type(s) of exercise: none Evaluation Evaluation Baseline heart rate: 145 Variability: Moderate (11-25) monitor accelerations: Present Monitor Decelerations: Absent Diagnosis, Plan/Disposition Final Diagnosis (1) Polyhydramnios: Status: Acute Plan/Disposition Plan: 22yo at 31w2d here for NST for polyhydramnios. NST reactive. Continue testing. OB Disposition: home
== END 2023-09-03 12:50 | disposition home or self-care (01) ==
PROVIDERS: Admitting Provider Family Medicine; Referring Provider Family Medicine; Visit Provider Family Medicine
DX: O40.3XX0 Polyhydramnios, third trimester, not applicable or unspecified (principal); Z3A.31 31 weeks gestation of pregnancy
CPT/HCPCS: 59025; G0378; G0379

== ENCOUNTER 2023-09-10 10:46 | Outpatient (CLI) | payer OTHER, SELFPAY | END 2023-09-10 11:22 | disposition home or self-care (01) | LOC: OB 09-11 08:25 | PROVIDERS: Referring Provider Family Medicine; Visit Provider Family Medicine | DX: O40.3XX0 Polyhydramnios, third trimester, not applicable or unspecified (principal); O24.419 Gestational diabetes mellitus in pregnancy, unspecified control; Z3A.32 32 weeks gestation of pregnancy | CPT/HCPCS: 59025; G0378; G0379 ==

== ENCOUNTER 2023-09-13 12:50 | Outpatient (CLI) | payer OTHER, SELFPAY | END 2023-09-13 14:02 | disposition home or self-care (01) | LOC: LABOR 13:10 → OB 09-16 06:19 | PROVIDERS: Referring Provider Family Medicine; Visit Provider Family Medicine | DX: O24.419 Gestational diabetes mellitus in pregnancy, unspecified control (principal); O40.3XX0 Polyhydramnios, third trimester, not applicable or unspecified; Z3A.32 32 weeks gestation of pregnancy | CPT/HCPCS: 59025; 97803; G0378; G0379 ==

== ENCOUNTER 2023-09-17 10:45 | Outpatient (CLI) | payer OTHER, SELFPAY ==
--- NOTE | 2023-09-17 11:32 | PM.OBTRLD ---
Visit Information Visit Information Date of evaluation: 09/17/23 Primary OB Provider: Marivel Pablo Comments/Additional reasons for admission: 22yo at 33w2d here for NST for polyhydramnios. [facility] Medical History (Updated 09/03/23 @ 15:13 by Marivel Pablo MD) Anemia (~2022) Respiratory obstruction Tonsillar hypertrophy Tonsil stone Chronic tonsillitis Surgical History (Updated 04/15/23 @ 18:40 by Marnie Madsen) Anesthesia History of tonsillectomy (~12/2021) Family History Mother Mini's thyroiditis Rheumatoid arthritis Grandmother Brain aneurysm History of skin graft Non-healing surgical wound Social History marital status: number of children: 0 household members: spouse lives independently: Yes caregiver/support person: No housing: apartment pets and animals: Yes (2 cats, will wear gloves when managing litter box) education level: college (some college) occupational status: employed (active duty [employer]) current occupational exposures/hazards: Yes (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 ) special vj needs: No travel history: recent (Domestic only) seatbelt use: always helmet use: Yes water heater temp set < 120 deg: Yes working smoke detector in home: Yes fire extinguisher in home: No carbon monox detector in home: Yes firearms in home: No do you feel safe at home: Yes Smoking Status: Former smoker (Quit when she learned that she was ) Tobacco: How many years used: 7 (vaping since age 15) second hand exposure: Yes ( also trying to quit vaping) alcohol intake: former (occasionally when not ) substance use type: does not use during the past year weight has: increased > 10 lbs well-balanced diet: rarely or never (does not eat vegetables, not willing to try to improve this) daily servings fruits/ve-1 (fruit only) caffeine: Yes (~1 cup coffee in AM) Type(s) of exercise: none Diagnosis, Plan/Disposition Final Diagnosis (1) Polyhydramnios: Status: Acute (2) Decreased movement affecting management of in third trimester: Status: Acute (3) Gestational diabetes mellitus (GDM): Status: Acute Plan/Disposition Plan: 22yo at 33w2d here for NST for polyhydramnios. NST reactive. Continue testing. OB Disposition: home
== END 2023-09-17 11:32 | disposition home or self-care (01) ==
LOC: LABOR 11:10 → OB 09-19 11:55
PROVIDERS: Referring Provider Family Medicine; Visit Provider Family Medicine
DX: O40.3XX0 Polyhydramnios, third trimester, not applicable or unspecified (principal); O24.429 Gestational diabetes mellitus in childbirth, unspecified control; O36.8130 Decreased fetal movements, third trimester, not applicable or unspecified; Z3A.33 33 weeks gestation of pregnancy
CPT/HCPCS: 59025; G0378; G0379

== ENCOUNTER 2023-09-20 10:47 | Observation (INO) | payer OTHER, SELFPAY ==
--- NOTE | 2023-09-20 11:33 | P.TNLD_ITS ---
Visit Information Visit Information Date of evaluation: 09/20/23 Primary OB Provider: Marivel Pablo Comments/Additional reasons for admission: 22yo at 33w5d here for NST for polyhydramnios. [facility] Medical History (Updated 09/17/23 @ 12:16 by Marivel Pablo MD) Anemia (~2022) Respiratory obstruction Tonsillar hypertrophy Tonsil stone Chronic tonsillitis Surgical History (Updated 04/15/23 @ 18:40 by Marnie Madsen) Anesthesia History of tonsillectomy (~12/2021) Family History Mother Mini's thyroiditis Rheumatoid arthritis Grandmother Brain aneurysm History of skin graft Non-healing surgical wound Social History marital status: number of children: 0 household members: spouse lives independently: Yes caregiver/support person: No housing: apartment pets and animals: Yes (2 cats, will wear gloves when managing litter box) education level: college (some college) occupational status: employed (active duty [email or web address]) current occupational exposures/hazards: Yes (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 ) special vj needs: No travel history: recent (Domestic only) seatbelt use: always helmet use: Yes water heater temp set < 120 deg: Yes working smoke detector in home: Yes fire extinguisher in home: No carbon monox detector in home: Yes firearms in home: No do you feel safe at home: Yes Smoking Status: Former smoker (Quit when she learned that she was ) Tobacco: How many years used: 7 (vaping since age 15) second hand exposure: Yes ( also trying to quit vaping) alcohol intake: former (occasionally when not ) substance use type: does not use during the past year weight has: increased > 10 lbs well-balanced diet: rarely or never (does not eat vegetables, not willing to try to improve this) daily servings fruits/ve-1 (fruit only) caffeine: Yes (~1 cup coffee in AM) Type(s) of exercise: none Evaluation Evaluation Baseline heart rate: 130 Variability: Moderate (11-25) monitor accelerations: Present Monitor Decelerations: Absent Category of Tracing: Reactive Diagnosis, Plan/Disposition Final Diagnosis (1) Polyhydramnios: Status: Acute Plan/Disposition Plan: 22yo at 33w5d here for NST for polyhydramnios. NST reactive. Continue testing. OB Disposition: home
== END 2023-09-20 11:35 | disposition home or self-care (01) ==
LOC: LABOR 10:48
PROVIDERS: Admitting Provider Family Medicine; Referring Provider Family Medicine; Visit Provider Family Medicine
DX: O40.3XX0 Polyhydramnios, third trimester, not applicable or unspecified (principal); Z3A.33 33 weeks gestation of pregnancy
CPT/HCPCS: 59025; G0378; G0379

== ENCOUNTER 2023-09-24 10:46 | Outpatient (CLI) | payer OTHER, SELFPAY ==
--- NOTE | 2023-09-24 11:31 | P.TNLD_ITS ---
Visit Information Visit Information Date of evaluation: 09/24/23 Primary OB Provider: Marivel Pablo Comments/Additional reasons for admission: 22yo at 34w2d here for NST for polyhydramnios. [facility] Medical History (Updated 09/17/23 @ 12:16 by Marivel Pablo MD) Anemia (~2022) Respiratory obstruction Tonsillar hypertrophy Tonsil stone Chronic tonsillitis Surgical History (Updated 04/15/23 @ 18:40 by Marnie Madsen) Anesthesia History of tonsillectomy (~12/2021) Family History Mother Mini's thyroiditis Rheumatoid arthritis Grandmother Brain aneurysm History of skin graft Non-healing surgical wound Social History marital status: number of children: 0 household members: spouse lives independently: Yes caregiver/support person: No housing: apartment pets and animals: Yes (2 cats, will wear gloves when managing litter box) education level: college (some college) occupational status: employed (active duty [employer]) current occupational exposures/hazards: Yes (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 ) special vj needs: No travel history: recent (Domestic only) seatbelt use: always helmet use: Yes water heater temp set < 120 deg: Yes working smoke detector in home: Yes fire extinguisher in home: No carbon monox detector in home: Yes firearms in home: No do you feel safe at home: Yes Smoking Status: Former smoker (Quit when she learned that she was ) Tobacco: How many years used: 7 (vaping since age 15) second hand exposure: Yes ( also trying to quit vaping) alcohol intake: former (occasionally when not ) substance use type: does not use during the past year weight has: increased > 10 lbs well-balanced diet: rarely or never (does not eat vegetables, not willing to try to improve this) daily servings fruits/ve-1 (fruit only) caffeine: Yes (~1 cup coffee in AM) Type(s) of exercise: none Evaluation Evaluation Baseline heart rate: 130 Variability: Moderate (11-25) monitor accelerations: Present Monitor Decelerations: Absent Category of Tracing: Reactive Diagnosis, Plan/Disposition Final Diagnosis (1) Polyhydramnios: Status: Acute Plan/Disposition Plan: 22yo at 34w2d here for NST for polyhydramnios. NST reactive. Continue testing. OB Disposition: home
== END 2023-09-24 11:31 | disposition home or self-care (01) ==
LOC: OB 09-26 08:22
PROVIDERS: Referring Provider Family Medicine; Visit Provider Family Medicine
DX: O40.3XX0 Polyhydramnios, third trimester, not applicable or unspecified (principal); Z3A.34 34 weeks gestation of pregnancy
CPT/HCPCS: 59025; G0378; G0379

== ENCOUNTER → 2023-09-25 13:17 | Outpatient (CLI) | payer OTHER, SELFPAY ==
--- NOTE | 2023-09-26 10:04 | DIAB.GDFU ---
Follow-up Gestational Diabetes Assessment Name: Awilda Tony Date: 09/25/23 Time: 130-2p Dx: Gestational Diabetes Provider: Samy DANIEL: 11/03/23 Weeks: 34 Awilda presents for GDM visit. Reports improved CHO portions. More postprandial BG in range as a result, which is much improved from once per day elevations. Getting NSTs for polyhydramnios. Still some high CHO meals per diet journal, ie cinnamon rolls, cereal. Reports plans for 38 week induction. Reports poor sleep recently, may be due to pet sounds at night. Not impacting FBG at this time. Is not avoiding juice and soda. Diet recall and SMBG log indicates she often skips lunch. States at work she may skip lunch due to being busy with appts and forgetting to pack lunch ahead of time. Also reports eating deli meat without heating. Not familiar with listeria precautions per report. Still struggling with adding veggies to meals, though seems to add more at lunch. Diet Recall: -: 2 small pancakes with 3 TBS syrup and breakfast meat OR toast with PB, banana slices and egg 230-3p: nothing or ham sandwich with veggie and side fruit 8-9p: protein, 1c pasta OR steak quesadilla 80oz water, 12oz milk Anthropometrics: Ht: 68 Wt: 225# last OB visit Prepregnancy wt: 190# Physical Activity: Increased walking at work. No intentional exercise, but trying to move more. Self-Monitoring Blood Glucose: Improved BG since reported last week. Much less postprandial elevations and none over 150mg/dl. Date Pre Post Pre Post Pre Post HS 09/18 82 106 106 09/19 81 118 105 111 09/20 83 109 126 09/21 81 141 97 09/22 79 113 108 122 09/23 82 120 103 09/24 81 119 Diabetes Medications: None Pertinent Labs: Screen 137; OGTT 83, 196H, 185H, 82 Nutrition Rx: Carbohydrates: Meal: 45-g lunch and dinner; 30-45g breakfast Snack: 15-30g Nutrition Diagnosis: Altered nutrition related lab value r/t GDM dx aeb recent OGTT Food and nutrition related knowledge deficit r/t new dx GDM aeb OGTT and diet recall- in progress Excessive CHO intake r/t fasting long periods and over consuming thereafter aeb pt report, diet journal and SMBG- in progress Food and nutrition related knowledge deficit r/t no previous education regarding listeria risks aeb pt report and diet recall- new Intervention: This participant was very receptive. Provided appropriate educational handouts. Discussed the following topics: Recent blood sugar results and impact of food and hormones Review of macronutrient recommendations during Strategies for more consistent intake Listeria food safety education Goals: Avoid juice- met Bring lunch to work- improved Eat q 3-4 hours small freq portions- not met Pack lunches before appts- new Heat up lunch meats- new Follow-up: MICHAEL UNDERWOOD follow-up in two weeks Yessica Heller RDN, KJ Certified Diabetes Care and [employer] T: [phone] F: [phone] [email or web address] Thank you for this referral
== END ==
LOC: DIET 13:18
PROVIDERS: Referring Provider Family Medicine
DX: O24.419 Gestational diabetes mellitus in pregnancy, unspecified control (principal); Z3A.34 34 weeks gestation of pregnancy; Z71.3 Dietary counseling and surveillance
CPT/HCPCS: 97803

== ENCOUNTER → 2023-09-26 11:10 | Outpatient (CLI) | payer OTHER, SELFPAY ==
--- NOTE | 2023-09-26 11:11 | DI.US.S_ITS ---
PROCEDURE: US OB FOLLOW UP INDICATIONS: growth OUTSIDE/PRIOR DATING DATA: Last menstrual period (LMP): Unsure. LMP-based estimated date of delivery (DANIEL): 10/27/23. First dating scan (date and location): 04/08/23. Estimated date of delivery (DANIEL) from first dating scan: 11/03/23. The calculations are made using the ultrasound DANIEL of 11/03/23. TECHNIQUE: Real-time scanning was performed of the fetus, with image documentation and biometric measurements. Endovaginal scanning: Not performed COMPARISON: None. FINDINGS: General: A single living intrauterine gestation is present. Presentation: Vertex. Placenta: Placental position is posterior , without previa. Amniotic fluid index: 19.6 cm, normal range is 5-24 cm. Single deepest vertical pocket is 6.0 cm. heart rate: 152 beats per minute. Maternal cervical canal: Closed and 3.6 cm long. Normal lower limit is 2.5 cm. biometrics: Biparietal diameter: 8.6 cm, 34 weeks four days Head circumference: 32.4 cm, 36 weeks five days Abdominal circumference: 32.3 cm, 36 weeks one day Femur length: 6.9 cm, 35 weeks two days Clinically estimated gestational age: 34 weeks four days Composite gestational age from present scan: 35 weeks five days Estimated weight and percentile: 2779 g, 81st percentile Other: Not applicable. IMPRESSION: Single living intrauterine in vertex presentation with composite gestational age by today's measurements of 35 weeks five days, eight days ahead of the expected gestational age. Estimated weight at the 81st percentile. Closed cervix and normal amniotic fluid volume. We strive to produce accurate, complete, and clear reports of imaging services. To assist us in improving patient care, this report was composed using standard report templates and voice recognition software. Therefore, it may contain abnormal punctuation, insertions and/or omissions. Occasional wrong-word or sound-alike substitutions may occur. Though we review the report and make efforts to correct it, we do recommend that the report be read carefully in proper context to recognize any text inaccuracies. Dictated by: Sandee Monreal M.D. on 09/26/2023 at 16:44 Approved by: Sandee Monreal M.D. on 09/26/2023 at 16:48
== END ==
PROVIDERS: Referring Provider Family Medicine; Visit Provider Family Medicine
DX: O40.3XX0 Polyhydramnios, third trimester, not applicable or unspecified; Z3A.35 35 weeks gestation of pregnancy
CPT/HCPCS: 76816

== ENCOUNTER 2023-09-26 11:56 | Outpatient (CLI) | payer OTHER, SELFPAY ==
--- NOTE | 2023-09-26 12:24 | PM.OBTRLD ---
Visit Information Visit Information Date of evaluation: 09/26/23 Primary OB Provider: Marivel Pablo On-call OB Provider: Donn Sheldon Reason for Evaluation: Yes non-stress test non-stress test reason: diabetes Comments/Additional reasons for admission: 22yo at GA 34+4 weeks here for NST for polyhydramnios. [facility] Medical History (Updated 09/17/23 @ 12:16 by Marivel Pablo MD) Anemia (~2022) Respiratory obstruction Tonsillar hypertrophy Tonsil stone Chronic tonsillitis Surgical History (Updated 04/15/23 @ 18:40 by Marnie Madsen) Anesthesia History of tonsillectomy (~12/2021) Family History Mother Mini's thyroiditis Rheumatoid arthritis Grandmother Brain aneurysm History of skin graft Non-healing surgical wound Social History marital status: number of children: 0 household members: spouse lives independently: Yes caregiver/support person: No housing: apartment pets and animals: Yes (2 cats, will wear gloves when managing litter box) education level: college (some college) occupational status: employed (active duty [employer]) current occupational exposures/hazards: Yes (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 ) special vj needs: No travel history: recent (Domestic only) seatbelt use: always helmet use: Yes water heater temp set < 120 deg: Yes working smoke detector in home: Yes fire extinguisher in home: No carbon monox detector in home: Yes firearms in home: No do you feel safe at home: Yes Smoking Status: Former smoker (Quit when she learned that she was ) Tobacco: How many years used: 7 (vaping since age 15) second hand exposure: Yes ( also trying to quit vaping) alcohol intake: former (occasionally when not ) substance use type: does not use during the past year weight has: increased > 10 lbs well-balanced diet: rarely or never (does not eat vegetables, not willing to try to improve this) daily servings fruits/ve-1 (fruit only) caffeine: Yes (~1 cup coffee in AM) Type(s) of exercise: none Evaluation Evaluation Baseline heart rate: 130 Variability: Moderate (11-25) monitor accelerations: Present Monitor Decelerations: Absent Category of Tracing: Reactive Status: Category l Diagnosis, Plan/Disposition Final Diagnosis (1) Polyhydramnios: Status: Acute Plan/Disposition Plan: 22yo at [place] 34+4 weeks here for NST for polyhydramnios. NST reactive. Continue testing. OB Disposition: home
== END 2023-09-26 12:29 | disposition home or self-care (01) ==
LOC: LABOR 12:21 → OB 09-30 06:12
PROVIDERS: Referring Provider Family Medicine; Visit Provider Family Medicine
DX: O40.3XX0 Polyhydramnios, third trimester, not applicable or unspecified (principal); O24.913 Unspecified diabetes mellitus in pregnancy, third trimester; Z3A.34 34 weeks gestation of pregnancy
CPT/HCPCS: 59025; 76816; 84112; G0378; G0379

== ENCOUNTER → 2023-10-07 16:59 | Outpatient (CLI) | payer OTHER, SELFPAY ==
[2023-10-08 15:14] LABS: Strep Grp B PCR POS for Grp B Strep
== END ==
PROVIDERS: Visit Provider Family Medicine
DX: Z34.00 Encounter for supervision of normal first pregnancy, unspecified trimester (principal)
CPT/HCPCS: 87653

== ENCOUNTER → 2023-10-08 10:15 | Outpatient (CLI) | payer OTHER, SELFPAY ==
[2023-10-08 11:03] LABS: Add Manual Diff / Slide Review NO; Basophils Absolute Auto 0 /uL (0-100); Basophils Percent Auto 0.4 % (0-2); Eosinophils Absolute Auto 0 /uL (0-450); Eosinophils Percent Auto 0.5 % (2-4); Hematocrit 30.9 % (36-46); Hemoglobin 10.3 g/dL (12.0-16.0); Lymphocytes Absolute Auto 1200 /uL (1100-4500); Lymphocytes Percent Auto 15.1 % (25-40); Mean Corpuscular HGB Conc 33.2 % (30-36); Mean Corpuscular Hemoglobin 27.3 PG (26-34); Mean Corpuscular Volume 82.2 fL (80-100); Monocytes Absolute Auto 700 /uL (0-900); Monocytes Percent Auto 8.1 % (3-14); Neutrophils Absolute Auto 6100 /uL (1500-7000); Neutrophils Percent Auto 75.9 % (50-75); Platelet Count 251 X10^3/uL (150-400); Red Blood Cell Count 3.77 X10^6/uL (4.0-5.2); Red Cell Distribution Width 14.6 % (11.6-14.8); White Blood Cell Count 8.1 X10^3/uL (4.5-11.0)
[2023-10-08 11:29] LABS: Alanine Aminotransferase 16 IU/L (<35); Albumin 3.1 g/dL (3.5-5.0); Albumin Globulin Ratio 1.1 (1.0-2.8); Alkaline Phosphatase 152 U/L (38-126); Aspartate Aminotransferase 19 IU/L (14-36); BUN Creatinine Ratio 9.1 (6-22); Bilirubin Total 0.4 mg/dL (0.2-1.3); Blood Urea Nitrogen 6 mg/dL (7-17); Calcium 8.7 mg/dL (8.4-10.2); Carbon Dioxide 19 mmol/L (22-32); Chloride 109 mmol/L (98-107); Estimated Glomerular Filt Rate > 60 mL/min (>60); Globulin 2.7 g/dL (1.7-4.1); Glucose 115 mg/dL (70-100); HEMOLYSIS < 15 (0-50); Sodium 136 mmol/L (137-145); Total Protein 5.8 g/dL (6.3-8.2)
[2023-10-08 11:35] LABS: Creatinine Urine Random 136.46 mg/dL; Protein (Total) Urine Random 13 mg/dL (0-12); Protein Creatinine Ratio Urine 0.09 GRAM/24H
== END ==
PROVIDERS: Referring Provider Family Medicine; Visit Provider Family Medicine
DX: O12.00 Gestational edema, unspecified trimester (principal)
CPT/HCPCS: 36415; 80053; 82570; 84156; 85025

== ENCOUNTER → 2023-10-09 10:17 | Outpatient (CLI) | payer OTHER, SELFPAY ==
--- NOTE | 2023-10-09 17:32 | DIAB.GDFU ---
Follow-up Gestational Diabetes Assessment Name: Awilda Tony Date: 10/09/23 Time: 1035-11a Dx: Gestational Diabetes Provider: Samy DANIEL: 11/03/23 Weeks: 36 Awilda presents for GDM visit. Reports recently back from vacation. States she was more active during vacation and continued to try and watch carb portions. Some skipped meals with taking more naps recently. Based on BG provided, no longer having daily elevations. Some concerns for preeclampsia reported, completed labs to r/o. Resolved polyhdramnios per OB report. Pt reports GS indicating 81st percentile, though states less concerning due to higher percentile head circumference, not just wt. Plans to 38 week induction. Anthropometrics: Ht: 68 Wt: 225# last 2 OB visits Prepregnancy wt: 190# Physical Activity: More hiking and swimming while on vacation. Self-Monitoring Blood Glucose: Checking FBG and 2 hour pc. FBG in goal. Some elevations postprandial, though most that are available for review are in goal. Date Pre Post Pre Post Pre Post HS 10/02 83 149 7/5 94 113 132 7/6 89 118 88 7/7 82 96 123 7/8 92 134 115 7/9 86 111 103 7/10 79 Diabetes Medications: None Pertinent Labs: Screen 137; OGTT 83, 196H, 185H, 82 Intervention: This participant was very receptive. Provided appropriate educational handouts. Discussed the following topics: Recent blood sugar results and impact of food and hormones Review of macronutrient recommendations during Benefits, resources, and nutrition for recommendations for nutrition and physical activity recommendations for T2DM risk reduction OGTT at 6-12 weeks Checking blood sugars twice per week (goal: fasting <100 mg/dL and 2 hour pc <140 mg/dL) until 6 week check-up HgA1c q 1-3 years. Goals: Pack lunches before appts- continue Heat up lunch meats- continue Follow Dm risk reduction recs- new Follow-up: MICHAEL UNDERWOOD follow-up prn. Encouraged her to call or message with any questions or f/u needs. Yessica Heller RDN, KJ Certified Diabetes Care and Dog Or Animal Sitter T: [phone] F: [phone] [email or web address] Thank you for this referral
== END ==
PROVIDERS: Referring Provider Family Medicine
DX: O24.419 Gestational diabetes mellitus in pregnancy, unspecified control (principal); Z3A.36 36 weeks gestation of pregnancy; Z71.3 Dietary counseling and surveillance
CPT/HCPCS: G0108

== ENCOUNTER 2023-10-13 11:06 | Outpatient (CLI) | payer OTHER, SELFPAY | END 2023-10-13 11:55 | disposition home or self-care (01) | LOC: OB 10-15 09:25 | PROVIDERS: Referring Provider Student in an Organized Health Care Education/Training Program; Visit Provider Student in an Organized Health Care Education/Training Program | DX: O36.8130 Decreased fetal movements, third trimester, not applicable or unspecified (principal); O24.419 Gestational diabetes mellitus in pregnancy, unspecified control; O40.3XX0 Polyhydramnios, third trimester, not applicable or unspecified; Z3A.37 37 weeks gestation of pregnancy | CPT/HCPCS: 59025; 84112; G0378; G0379 ==

== ENCOUNTER 2023-10-21 19:02 | Inpatient (IN) | payer OTHER, SELFPAY ==
[2023-10-21 20:43] VITALS: BP 128/62
[2023-10-21 21:00] LABS: Add Manual Diff / Slide Review NO; Basophils Absolute Auto 0 /uL (0-100); Basophils Percent Auto 0.2 % (0-2); Eosinophils Absolute Auto 100 /uL (0-450); Eosinophils Percent Auto 0.6 % (2-4); Hematocrit 30.5 % (36-46); Lymphocytes Absolute Auto 1300 /uL (1100-4500); Lymphocytes Percent Auto 14.2 % (25-40); Mean Corpuscular Hemoglobin 26.8 PG (26-34); Mean Corpuscular Volume 81.1 fL (80-100); Monocytes Absolute Auto 700 /uL (0-900); Monocytes Percent Auto 7.7 % (3-14); Neutrophils Absolute Auto 7200 /uL (1500-7000); Neutrophils Percent Auto 77.3 % (50-75); Platelet Count 240 X10^3/uL (150-400); Red Blood Cell Count 3.76 X10^6/uL (4.0-5.2); Red Cell Distribution Width 15.4 % (11.6-14.8); White Blood Cell Count 9.3 X10^3/uL (4.5-11.0)
[2023-10-21] MEDS: miSOPROStoL 25 MCG TABLET 50 MCG PO (21:15)
[2023-10-22] MEDS: AMPICILLIN 2,000 MG in SODIUM CHLORIDE 0.9% 100 ML 200 MG IV (05:54)
--- NOTE | 2023-10-22 08:11 | PM.OBHP.IH.1 ---
OB HPI Date/Time Date of admission: 10/21/23 Date Patient Seen: 10/22/23 History of Present Condition Chief complaint: Induction DANIEL Calculator Estimated Delivery Date Method Current WG Current Estimate 11/03/23 Manual 38w 2d Final DANIEL - ALKA Other Estimates 10/24/23 LMP (Certain) 39w 5d 11/03/23 Ultrasound #1 38w 2d Estimated Gestational Age (weeks): 38w2d : 1 Para: 0 Narrative: Pt is a 22yo at 38w2d here for IOL due to uncontrolled GDM and LGA. The pt denies any vaginal bleeding, LOF, or contractions. She is feeling her baby move regularly. Her was complicated by GDM, initially with excellent diet control however in the weeks prior to IOL with rising blood sugars. The pts baby is also noted to be LGA. She had polyhydramnios earlier in that resolved in the mid-3rd trimester. care: good care, initiated at week # (10) and pounds weight gain (36) Dating criteria OB: based on 1st trimester US only Ultrasounds: normal 1st trimester US and normal mid trimester US Obstetrical complications: gestational diabetes and other (LGA, polyhydramnios) Medical complications OB: none Indications Indication for induction OB: gestational diabetes Preadmission Labs Last OB Lab Results: Blood Type O Positive 10/21/23 20:30 Antibody Screen Negative 10/21/23 20:30 Hct 30.5 % (36-46) L 10/21/23 20:30 Hgb 10.0 g/dL (12.0-16.0) L 10/21/23 20:30 Hep Bs Antigen Negative s/c (NEGATIVE) 04/11/23 09:10 Hepatitis C Antibody Negative s/c (NEGATIVE) 04/11/23 09:10 Rubella Antibody 14.8 IU/mL (>15) L 04/11/23 09:10 VZV IgG Antibody 665 index (Immune >165) 04/11/23 09:10 Glucose 1 Hr 50 gm 137 mg/dL (76-139) 08/13/23 09:43 Group B Strep (PCR) Pos for grp b strep H 10/07/23 16:59 Glucose Tolerance Testing: Fasting (83), 1 hr (196), 2 hr (185) and 3 hr (82) -: Chlamydia screen: negative, Gonorrhea screen: negative and Urine: negative Genetic Screens: Quad screen: Normal External Labs -: Urine: negative Evaluation Evaluation Baseline heart rate: 130 Variability: Moderate (11-25) monitor accelerations: Present Monitor Decelerations: Absent Contraction Frequency (minutes): 5 Uterine Contraction Intensity: Mild Status: Category l Dilation (cm): 1.5 Effacement (%): 80 Dilation: 1-2 cm Effacement: >/=80% station: -2 Position of cervix: mid Consistency: soft Simons score: 8 [facility] Medical History (Updated 09/17/23 @ 12:16 by Marivel Pablo MD) Anemia (~2022) Respiratory obstruction Tonsillar hypertrophy Tonsil stone Chronic tonsillitis Surgical History (Updated 04/15/23 @ 18:40 by Marnie Madsen) Anesthesia History of tonsillectomy (~12/2021) Family History Mother Mini's thyroiditis Rheumatoid arthritis Grandmother Brain aneurysm History of skin graft Non-healing surgical wound Social History marital status: number of children: 0 household members: spouse lives independently: Yes caregiver/support person: No housing: apartment pets and animals: Yes (2 cats, will wear gloves when managing litter box) education level: college (some college) occupational status: employed (active duty [employer]) current occupational exposures/hazards: Yes (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 ) special vj needs: No travel history: recent (Domestic only) seatbelt use: always helmet use: Yes water heater temp set < 120 deg: Yes working smoke detector in home: Yes fire extinguisher in home: No carbon monox detector in home: Yes firearms in home: No do you feel safe at home: Yes Smoking Status: Former smoker Tobacco: How many years used: 7 (vaping since age 15) second hand exposure: Yes ( also trying to quit vaping) alcohol intake: former (occasionally when not ) substance use type: does not use during the past year weight has: increased > 10 lbs well-balanced diet: rarely or never (does not eat vegetables, not willing to try to improve this) daily servings fruits/ve-1 (fruit only) caffeine: Yes (~1 cup coffee in AM) Type(s) of exercise: none Meds Home Medications and Allergies Home Medications Medication Instructions Recorded Confirmed Type cetirizine 10 mg tablet (All Day 10 mg PO DAILY PRN 03/05/23 10/16/23 History Allergy (cetirizine)) vit no.95-ferrous 1 tab PO DAILY 03/05/23 10/16/23 History fumarate 28 mg-folic acid 800 mcg tablet ( Multivitamins) blood-glucose meter #1 ea 08/23/23 10/16/23 Rx blood sugar diagnostic (FreeStyle #100 ea 09/27/23 10/16/23 Rx Test strips) metronidazole 500 mg tablet 500 mg PO BID #14 tabs 10/08/23 10/16/23 Rx Allergies Allergy/AdvReac Type Severity Reaction Status Date / Time No Known Drug Allergies Allergy Verified 10/16/23 11:09 OB Exam Resp Effort & Inspection: normal respiratory effort Auscultation: clear to auscultation bilaterally Cardio Rate: regular rate Rhythm: regular rhythm Heart Sounds: S1 normal, S2 normal and no murmurs GI Inspection: non-distended Palpation: Yes soft and No tender Presentation: vertex Objective Labs 10/21/23 20:30 Labs: Laboratory Results - last 24 hr 10/21/23 20:30 WBC 9.3 RBC 3.76 L Hgb 10.0 L Hct 30.5 L MCV 81.1 MCH 26.8 MCHC 33.0 RDW 15.4 H Plt Count 240 Neut % (Auto) 77.3 H Lymph % (Auto) 14.2 L [place] % (Auto) 7.7 Eos % (Auto) 0.6 L Baso % (Auto) 0.2 Neut # (Auto) 7200 H Lymph # (Auto) 1300 [place] # (Auto) 700 Eos # (Auto) 100 Baso # (Auto) 0 Blood Type O Positive Antibody Screen Negative Assessment and Plan Assessment and Plan Assessment and Plan narrative: 22yo at 38w2d here for IOL due to uncontrolled GDM and LGA. GBS positive, Rh positive. Pt received one dose of cytotec overnight, Simons score now 8. - Initiate pitocin, titrate as tolerated - GBS positive, start ampicillin prophylaxis - FHT reassuring - Epidural for pain control when desired - q4hr blood sugar checks Time-Based Coding :: [TOTAL MINUTES] spent with patient and on the chart (including review of chart, obtaining history, exam, reviewing outside data, placing orders, documenting exam and treatment plan, and counseling patient) on [DATE].
[2023-10-22] MEDS: LACTATED RINGERS 1,000 ML 100 ML IV ×2 (08:21→14:21)
[2023-10-22] MEDS: OXYTOCIN PREMIX 30 UNIT/500 ML PLAST..BAG IV (08:22)
[2023-10-22] MEDS: AMPICILLIN 1,000 MG in SODIUM CHLORIDE 0.9% 100 ML 200 MG IV ×3 (10:00→18:51)
--- NOTE | 2023-10-22 13:53 | PM.AN.REGBLK ---
Regional Block Pre-procedure PMH/ROS narrative: 22yo at 38+2for IOL due to uncontrolled GDM and LGA. No medical complications. PSH/Anesthesia history narrative: tonsillectomy. No anesthetic problems. Exam narrative: MP 1 ASA Class: II Labs: Hct 30.5 % (36-46) L 10/21/23 20:30 Plt Count 240 X10^3/uL (150-400) 10/21/23 20:30 Medications: Current Medications Generic Name Dose Route Start Last Admin Trade Name Freq PRN Reason Stop Dose Admin Calcium Carbonate 1,000 mg 10/21/23 19:23 Calcium Carbonate 500 Mg Tab PO Q4HR PRN Dyspepsia Carboprost Tromethamine 250 mcg 10/21/23 19:23 Carboprost 250 Mcg/Ml Ampul IM Q90M PRN Bleeding Fentanyl 50 mcg 10/21/23 19:23 Fentanyl 100 Mcg/2 Ml Inj IV Q1H PRN Pain, Moderate (4-6) Oxytocin/Lactated Ringer's 30 unit in 500 mls @ 200 mls/hr 10/21/23 19:23 Oxytocin Premix IV CONT PRN Bleeding Protocol Tranexamic Acid 1,000 mg/ 100 mls @ 600 mls/hr 10/21/23 19:23 Sodium Chloride IV NOW PRN Bleeding Oxytocin/Lactated Ringer's 30 unit in 500 mls @ 2 mls/hr 10/21/23 19:30 10/22/23 08:22 Oxytocin Premix IV 2 milliunit/min TITRATE BI 2 mls/hr Administration Protocol 2 MILLIUNIT/MIN Ampicillin Sodium 1,000 mg/ 100 mls @ 200 mls/hr 10/22/23 00:00 10/22/23 10:00 Sodium Chloride IV 200 mls/hr Q4H BI Administration Lactated Ringer's 1,000 mls @ 100 mls/hr 10/21/23 19:30 10/22/23 08:21 Lactated Ringers IV 100 mls/hr CONT BI Administration Lidocaine HCl 20 ml 10/21/23 19:23 Lidocaine 1% 20 Ml INJ INTRA-OP PRN Post Delivery Methylergonovine Maleate 0.2 mg 10/21/23 19:23 Methylergonovine 0.2 Mg Tablet PO Q6HR PRN Heavy Bleeding Methylergonovine Maleate 0.2 mg 10/21/23 19:23 Methylergonovine 0.2 Mg/Ml Vial IM NOW PRN Bleeding Misoprostol 800 mcg 10/21/23 19:23 Misoprostol 200 Mcg Tablet CA NOW PRN Bleeding Misoprostol 400 mcg 10/21/23 19:23 Misoprostol 200 Mcg Tablet SL NOW PRN Bleeding Misoprostol 50 mcg 10/21/23 19:30 10/21/23 21:15 Misoprostol 25 Mcg Tablet PO 50 mcg Q4H BI Administration Naloxone HCl 0.2 mg 10/21/23 19:23 Naloxone 0.4 Mg/Ml Vial IV Q2MIN PRN Opiate Reversal Ondansetron HCl 4 mg 10/21/23 19:23 Ondansetron 4 Mg/2 Ml Inj IV Q4HR PRN Nausea And Vomiting Oxytocin 10 unit 10/21/23 19:23 Oxytocin 10 Unit/Ml Vial IM NOW PRN Bleeding Allergies: Allergies Allergy/AdvReac Type Severity Reaction Status Date / Time No Known Drug Allergies Allergy Verified 10/16/23 11:09 Procedure Insertion date: 10/22/23 Insertion time: 14:10 Prep/Local: betadine x3 and 1% lidocaine Interspace: L3-4 Patient position: sitting Needle: 18 gauge Hustead (CSE: 27g Pencan through Hustead, clear CSF, 1mL 0.25% bupiv MPF) Loss of resistance with: saline JUNG at (cm): 6 Catheter placed at SKIN (cm): 13 Catheter in SPACE (cm): 7 Insertion: No CSF, No Blood, No Paresthesia with insertion, No Paresthesia with injection and No Test dose reaction Initial Medications TEST DOSE time: 14:12 TEST DOSE: 1.5% lidocaine with epinephrine 1:200k (mL): 3 BOLUS DOSE time: 14:22 BOLUS DOSE (mL): 4 BOLUS DOSE med: other (infusate) Infusion INFUSION: 0.125% bupivacaine and with fentanyl 2 mcg/mL Initial rate (mL/hr): 9 Subsequent interventions: PCEA@9+4 Post-procedure Anesthesia date START: 10/22/23 Anesthesia time START: 14:00 Anesthesia date END: 10/22/23 Anesthesia time END: 21:14 Post-procedure Anesthesia Assessment: Yes CV function: HR/BP stable, Yes Resp function: RR/sat/airway adequate, Yes Post-op hydration adequate, Yes Pain control adequate, Yes Nausea & vomiting absent, Yes Temperature > 36 C, Yes Mental status appropriate and No Anesthesia complications
--- NOTE | 2023-10-22 14:59 | PM.OBPNLAB ---
Date/Time Date Patient Seen: 10/22/23 Time Patient Seen: 13:00 Pain Control Pain control: tolerating well Pelvic Exam Dilation (cm): 1.5 Effacement (%): 80 station: -2 Contractions Monitor mode: External Pitocin rate (mU/min): 10 Contraction frequency (min): 3 Contraction intensity: Mild Status status: Category l Heart Rate Baseline: 130 Monitor Accelerations: Present Monitor Decelerations: Absent Monitor Variability: Moderate Assessment and Plan Comments: 22yo at 38w2d here for IOL for uncontrolled GDM and LGA. GBS positive, Rh positive. Received 1 dose of cytotec overnight, now on pitocin without significant cervical change. After informed consent, AROM performed with clear fluid present. - Continue pitocin, titrate as tolerated - GBS positive, has received adequate prophylaxis, continue Ampicillin - Epidural for pain control when desired - FHT reassuring
[2023-10-22] MEDS: FENT 2MCG/ML BUPIV 0.125% EPI 200 MCG/100 ML PLAST..BAG 8 MCG EPIDURAL (20:15)
--- NOTE | 2023-10-22 21:51 | P.PCNOB_ITS ---
Labor & Delivery Delivery date: 10/22/23 Induction method: per pitocin protocol Delivery augmentation: rupture of membranes Delivery monitor: external FHT and external uterine Route of delivery: Episiotomy description: None L&D Laceration Description: Perineal - 2nd Degree and Labial Quantitative Blood Loss: 996 Anesthesia Type: Epidural Complications: hemorrhage Narrative: PROCEDURE: at 38w2d presented for IOL for uncontrolled GDM and LGA and was admitted to Labor and Delivery. She received cytotec for induction, followed by pitocin. AROM occured at 12:53 with clear fluid. The patient progressed through the 1st stage over 7 hours. Pain was controlled with an epidural. The patient progressed through the 2nd stage over 1 hour and delivered a viable male infant with APGARs 8/9 at 21:04 via . The cord was cut and clamped after it stopped pulsating. The placenta delivered with gentle cord traction, and appeared complete. The perineum and vagina were inspected with 2nd degree perineal laceration and left labial laceration that were bleeding heavily. Bleeding was stable after usual repair, however there was substantial blood loss during the repair. Needle and sponge counts were correct.? The vagina was inspected and no items w ere left in situ. Awilda was doing well with Jose Alberto, her and her , Srinivas, at bedside. PREPROCEDURE DIAGNOSIS: Intrauterine at 38w2d Uncontrolled GDM LGA GBS positive RH positive POSTPROCEDURE DIAGNOSIS: Intrauterine at 38w2d, delivered Same as preprocedure hemorrhage Baby 1: gender: Male Presentation: vertex Position: Left Occiput Anterior Placenta delivery description: Spontaneous Cord Vessel Description: 3 Vessels score (1 min): 8 score (5 min): 9 weight: 7 lb 11.706 oz Plan for aftercare: Routine care
[2023-10-23] MEDS: WITCH HAZEL/GLYCERIN PADS 1 EACH TOP (02:50)
[2023-10-23] MEDS: ACETAMINOPHEN 325 MG TABLET 650 MG PO ×2 (02:50→08:55)
[2023-10-23] MEDS: IBUPROFEN 600 MG TABLET PO ×2 (02:50→08:54)
[2023-10-23 06:40] LABS: Add Manual Diff / Slide Review NO; Basophils Absolute Auto 0 /uL (0-100); Basophils Percent Auto 0.2 % (0-2); Eosinophils Absolute Auto 0 /uL (0-450); Eosinophils Percent Auto 0.2 % (2-4); Hematocrit 24.5 % (36-46); Hemoglobin 8.1 g/dL (12.0-16.0); Lymphocytes Absolute Auto 1200 /uL (1100-4500); Lymphocytes Percent Auto 7.4 % (25-40); Mean Corpuscular HGB Conc 33.1 % (30-36); Mean Corpuscular Hemoglobin 26.5 PG (26-34); Mean Corpuscular Volume 80.2 fL (80-100); Monocytes Absolute Auto 1300 /uL (0-900); Monocytes Percent Auto 8.1 % (3-14); Neutrophils Absolute Auto 13900 /uL (1500-7000); Neutrophils Percent Auto 84.1 % (50-75); Platelet Count 231 X10^3/uL (150-400); Red Blood Cell Count 3.06 X10^6/uL (4.0-5.2); Red Cell Distribution Width 15.2 % (11.6-14.8); White Blood Cell Count 16.5 X10^3/uL (4.5-11.0)
[2023-10-23] MEDS: DOCUSATE 100 MG CAPSULE PO (08:54)
[2023-10-23] MEDS: FERROUS SULFATE 325 MG TABLET PO (08:54)
[2023-10-23] MEDS: PRENATAL VIT,CALC/IRON/FOLIC 1 TABLET 1 TAB PO (08:55)
[2023-10-23 16:56] VITALS: BP 117/55; PULSE 70; RESP 18; TEMP 36.7
--- NOTE | 2023-10-23 17:04 | P.DS_ITS ---
Discharge Providers Provider Date of admission: 10/21/23 19:02 Discharge Date: 10/23/23 Primary care physician: Pallavi MARKS Provider Consults: 10/23/23 21:47 Consult to Junior Systems Engineer Routine Comment: Discharge provider: Marivel Pablo MD Summary Hospital Course Date Patient Seen: 10/23/23 Time Patient Seen: 12:15 Diagnoses: Intrauterine at 38w2d Uncontrolled GDM LGA GBS positive RH positive hemorrhage Hospital Course: The pt presented for IOL due to uncontrolled GDM and LGA. She received cytotec followed by pitocin. AROM was performed with clear fluid present. She had an epidural for pain control. She progressed to complete and had an of a viable baby boy. A 2nd degree perineal and labial laceration were repaired, that were bleeding heavily. , there were no complications. At the time of discharge she was voiding, ambulating, and passing flatus without difficulty. Her lochia was decreasing appropriately. Her pain was well controlled. She was pumping and feeding the baby formula as well. She will f/u in 6 weeks for check. She would like natural methods for contraception, her partner will also be deployed for the next 6 months. Peripartum Data Delivery Method: Natural Vaginal Laceration Description: Perineal - 2nd Degree and Labial Episiotomy description: None Procedures: Spontaneous vaginal delivery complications: none [place] 1: Gender: Male Disposition of : home Status at Discharge Cognitive/behavioral status at discharge: oriented Functional status at discharge: independent ambulation Overall status at discharge: patient is progressing back to baseline Time Spent with Patient Time attestation: Total time spent providing and/or coordinating discharge services: Objective Labs 10/23/23 06:30 Labs: Laboratory Results - last 24 hr 10/23/23 06:30 WBC 16.5 H D RBC 3.06 L Hgb 8.1 L Hct 24.5 L MCV 80.2 MCH 26.5 MCHC 33.1 RDW 15.2 H Plt Count 231 Neut % (Auto) 84.1 H Lymph % (Auto) 7.4 L [place] % (Auto) 8.1 Eos % (Auto) 0.2 L Baso % (Auto) 0.2 Neut # (Auto) 32357 H Lymph # (Auto) 1200 [place] # (Auto) 1300 H Eos # (Auto) 0 Baso # (Auto) 0 Exam Vital Signs (past 8 hours): - 10/23/23 16:56 Temperature 98.0 F Pulse Rate 70 Respiratory Rate 18 Blood Pressure 117/55 L Narrative Exam Narrative: Gen: NAD, sitting comfortably in bed, appears well CV: RRR, no murmurs Resp: clear to auscultation bilaterally Abd: soft, appropriately tender, fundus firm and below the umbilicus, nondistended Ext: no edema Discharge Plan Discharge Plan Patient Disposition: Home Discharge orders & Medications Prescriptions: New acetaminophen 325 mg Tablet 650 mg PO Q6HR PRN (Reason: Pain, Mild (1-3)) Qty: 30 0RF ferrous sulfate 325 mg (65 mg iron) Tablet 325 mg PO DAILY Qty: 30 0RF docusate sodium 100 mg Capsule 100 mg PO DAILY Qty: 30 0RF ibuprofen 600 mg Tablet 600 mg PO Q6HR PRN (Reason: Pain, Mild (1-3)) Qty: 30 0RF Continued (DME) blood-glucose meter Kit See Rx Instructions .Route Qty: 1 0RF Rx Instructions: As directed for four to six times per day testing (DME) FreeStyle Test Strip See Rx Instructions .Route Qty: 100 1RF Rx Instructions: As directed for four times per day blood sugar checks PNV cmb#95-ferrous fumarate-FA [ Multivitamins] 28 mg iron- 800 mcg tablet 1 tab PO DAILY cetirizine [All Day Allergy (cetirizine)] 10 mg tablet 10 mg PO DAILY PRN Discontinued metronidazole 500 mg tablet 500 mg PO BID Qty: 14 0RF Follow up/Referrals: Marivel Pablo MD [Physician] - (6 week Appt w/ Dr. Pablo: Dec.05 @ 2pm) Diet/Activity/Treatments Diet: Diet as Tolerated and Regular Skin/Wound/Dressing Care Report to your healthcare provider any signs of infection, such as:: chills, fever, increased pain and unusual drainage Visit Report/Discharge Packet Instructions: DI for Labor and Delivery, Vaginal Stand Alone Forms: Discharge: Care, Patient Portal/API, Stroke Signs & Symptoms Discharge Data Primary Care Provider: ProviderPallavi
== END 2023-10-23 18:49 | disposition home or self-care (01) | DRG 807 ==
PROVIDERS: Admitting Provider Family Medicine; Referring Provider Family Medicine; Visit Provider Family Medicine
DX: O24.420 Gestational diabetes mellitus in childbirth, diet controlled (principal); Z37.0 Single live birth; O36.63X0 Maternal care for excessive fetal growth, third trimester, not applicable or unspecified; O99.824 Streptococcus B carrier state complicating childbirth; O70.1 Second degree perineal laceration during delivery; Z3A.38 38 weeks gestation of pregnancy
CPT/HCPCS: 36415; 59050; 59200; 59400; 85025; 86850; 86900; 86901; G0379; J0290; J2590

== ENCOUNTER 2023-11-19 16:33 | Emergency (ER) | payer OTHER, SELFPAY ==
[2023-11-19 16:39] VITALS: BP 117/65; PULSE 79; RESP 16; TEMP 37.1; O2SAT 99; BMI 30.4
--- NOTE | 2023-11-19 16:44 | DI.RAD.S_ITS ---
PROCEDURE: XR TOE RT MIN 2V INDICATIONS: stubbed toe/pain TECHNIQUE: 3 views of the 5th toe(s) acquired. COMPARISON: None. FINDINGS: Bones: No fractures or dislocations. No suspicious bony lesions. Soft tissues: No suspicious soft tissue densities. IMPRESSION: No acute bony abnormality. Dictated by: Durga Garner M.D. on 11/19/2023 at 17:35 Approved by: Durga Garner M.D. on 11/19/2023 at 17:36
--- NOTE | 2023-11-19 18:14 | ED.LOWEXIN ---
HPI - Extremity Injury (Lower) General Chief Complaint: Extremity Injury, Lower Stated Complaint: thinks she broke rt 5th toe Time Seen by Provider: 11/19/23 17:58 Source: patient Mode of arrival: Ambulatory History of Present Illness HPI Narrative: Patient is a 23-year-old female who stated that she stubbed her right little toe approximately 2 days ago. Since that time has had increase in pain and swelling and discoloration. Related Data Home Medications Medication Instructions Recorded Confirmed cetirizine 10 mg tablet (All Day 10 mg PO DAILY PRN 03/05/23 10/16/23 Allergy (cetirizine)) vit no.95-ferrous 1 tab PO DAILY 03/05/23 10/16/23 fumarate 28 mg-folic acid 800 mcg tablet ( Multivitamins) Previous Rx's Medication Instructions Recorded blood-glucose meter #1 ea 08/23/23 blood sugar diagnostic (FreeStyle #100 ea 09/27/23 Test strips) acetaminophen 325 mg tablet 650 mg (2 x 325 mg) PO Q6HR PRN 10/23/23 Pain, Mild (1-3) #30 tabs docusate sodium 100 mg capsule 100 mg PO DAILY #30 caps 10/23/23 ferrous sulfate 325 mg (65 mg 325 mg PO DAILY #30 tabs 10/23/23 iron) tablet ibuprofen 600 mg tablet 600 mg PO Q6HR PRN Pain, Mild 10/23/23 (1-3) #30 tabs Allergies Allergy/AdvReac Type Severity Reaction Status Date / Time No Known Drug Allergies Allergy Verified 10/16/23 11:09 Review of Systems Musculoskeletal Musculoskeletal: Reports system reviewed and no additional complaints, except as documented Integumentary/Breasts Skin/Breast: Reports system reviewed and no additional complaints, except as documented Patient History Medical History Anemia (~2022) Respiratory obstruction Tonsillar hypertrophy Tonsil stone Chronic tonsillitis Surgical History (Updated 04/15/23 @ 18:40 by Marnie Madsen) Anesthesia History of tonsillectomy (~12/2021) Family History Mother Mini's thyroiditis Rheumatoid arthritis Grandmother Brain aneurysm History of skin graft Non-healing surgical wound Social History marital status: number of children: 0 household members: spouse lives independently: Yes caregiver/support person: No housing: apartment pets and animals: Yes (2 cats, will wear gloves when managing litter box) education level: college (some college) occupational status: employed (active duty [employer]) current occupational exposures/hazards: Yes (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 ) special vj needs: No travel history: recent (Domestic only) seatbelt use: always helmet use: Yes water heater temp set < 120 deg: Yes working smoke detector in home: Yes fire extinguisher in home: No carbon monox detector in home: Yes firearms in home: No do you feel safe at home: Yes Smoking Status: Former smoker Tobacco: How many years used: 7 (vaping since age 15) second hand exposure: Yes ( also trying to quit vaping) alcohol intake: former (occasionally when not ) substance use type: does not use during the past year weight has: increased > 10 lbs well-balanced diet: rarely or never (does not eat vegetables, not willing to try to improve this) daily servings fruits/ve-1 (fruit only) caffeine: Yes (~1 cup coffee in AM) Type(s) of exercise: none Smoking Status: Former smoker tobacco type: vaping alcohol intake frequency: a few times a week Substance Use Type: does not use Exam Initial Vital Signs Initial Vital Signs: Vital Signs Temperature 98.7 F 11/19/23 16:39 Pulse Rate 79 11/19/23 16:39 Respiratory Rate 16 11/19/23 16:39 Blood Pressure 117/65 11/19/23 16:39 Pulse Oximetry 99 11/19/23 16:39 Oxygen Delivery Method Room Air 11/19/23 16:39 Skin Other: Bruising at the base of the right little toe Extrem Other: Discomfort with palpation of the right little toe Course Orders Ordered: ED Orders 11/19/23 16:44 XR toe RT min 2V Stat Vital Signs Vital signs: Vital Signs - 8 hr 11/19/23 18:47 Pulse Rate 80 Respiratory Rate 16 Blood Pressure 118/65 Pulse Oximetry 99 Oxygen Delivery Method Room Air MDM - Extremity Injury (Lower) Imaging Data Extremity x-ray #1: Radiologist's Impression: PROCEDURE: XR TOE RT MIN 2V INDICATIONS: stubbed toe/pain TECHNIQUE: 3 views of the 5th toe(s) acquired. COMPARISON: None. FINDINGS: Bones: No fractures or dislocations. No suspicious bony lesions. Soft tissues: No suspicious soft tissue densities. IMPRESSION: No acute bony abnormality. MDM Narrative Medical decision making narrative: Neurovascularly intact. No fractures noted on the x-rays. No other injuries from the event. We discussed flaco taping. She can take Tylenol and ibuprofen and ice for comfort. Discharge Plan Departure Patient Disposition: Home Clinical Impression: Contusion of toe of right foot Instructions: Contusion, How to Flaco Tape Activity Restrictions/Additional Instructions: There were no fractures noted on the x-rays. I do recommend that you keep ice over your little toe. You can flaco tape it to the toe next to it if needed. Return to the emergency department for new symptoms. Prescriptions: No Action (DME) blood-glucose meter Kit See Rx Instructions .Route Qty: 1 0RF Rx Instructions: As directed for four to six times per day testing (DME) FreeStyle Test Strip See Rx Instructions .Route Qty: 100 1RF Rx Instructions: As directed for four times per day blood sugar checks PNV cmb#95-ferrous fumarate-FA [ Multivitamins] 28 mg iron- 800 mcg tablet 1 tab PO DAILY cetirizine [All Day Allergy (cetirizine)] 10 mg tablet 10 mg PO DAILY PRN acetaminophen 325 mg Tablet 650 mg PO Q6HR PRN (Reason: Pain, Mild (1-3)) Qty: 30 0RF ferrous sulfate 325 mg (65 mg iron) Tablet 325 mg PO DAILY Qty: 30 0RF docusate sodium 100 mg Capsule 100 mg PO DAILY Qty: 30 0RF ibuprofen 600 mg Tablet 600 mg PO Q6HR PRN (Reason: Pain, Mild (1-3)) Qty: 30 0RF Referrals: ProviderPallavi [Primary Care Provider] - Stand Alone Forms: Patient Portal/API
[2023-11-19 18:47] VITALS: BP 118/65; PULSE 80; RESP 16; O2SAT 99
== END 2023-11-19 18:47 | disposition home or self-care (01) ==
PROVIDERS: Emergency Provider Emergency Medicine
DX: S90.121A Contusion of right lesser toe(s) without damage to nail, initial encounter (principal); X58.XXXA Exposure to other specified factors, initial encounter
CPT/HCPCS: 73660; 99281; 99283

== ENCOUNTER → 2023-12-17 09:44 | Outpatient (CLI) | payer OTHER, SELFPAY ==
[2023-12-17 11:01] LABS: Glucose Fasting 84 mg/dL (70-100)
[2023-12-17 12:22] LABS: Glucose Tol Interpretation INTERPRETATION
[2023-12-17 14:46] LABS: Glucose 1 Hour 127 mg/dL (70-170)
[2023-12-17 14:48] LABS: Glucose 2 Hour 90 mg/dL (70-140)
== END ==
PROVIDERS: Referring Provider Family Medicine; Visit Provider Family Medicine
DX: O24.419 Gestational diabetes mellitus in pregnancy, unspecified control (principal)
CPT/HCPCS: 36415; 82951; 82952

== ENCOUNTER → 2024-08-11 09:10 | Outpatient (CLI) | payer OTHER, SELFPAY ==
--- NOTE | 2024-08-11 09:13 | DI.ECHO.S_ITS ---
[facility] +---------+ [facility] : : [address] : : [place] : : [id number] : : Phone: [phone] Echocardiogram Report + + :Name: BABS SANTIAGO Study Date: 08/11/2024 Height: 68 in : :Hospital ReadingLocation: Weight: 194 lb : : Gender: Female BSA: 2.0 m2 : :: 2000 Age: 23 yrs BP: 117/79 mmHg: :Reason For Study: Tachycardia : :Ordering Physician: SERGO, : :DREW Performed By: Kyle Smith : :Referring: DREW TROTTER : + + Interpretation Summary Normal sinus rhythm. Normal LV size and wall thickness; EF is 60-65%. Normal chamber sizes. No significant valvular abnormalities. No prior study available for comparison. Procedure: A two-dimensional transthoracic echocardiogram with color flow and Doppler was performed. The study quality was technically adequate. There is no prior echocardiogram noted for this patient. The patient was in normal sinus rhythm during the exam. Left Ventricle: The left ventricle is normal in size and wall thickness. Left ventricular systolic function is normal. The ejection fraction is estimated to be 60-65%. There are no focal wall motion abnormalities. Diastolic parameters suggest probable normal left ventricular diastolic function and normal filling pressures. Right Ventricle: The right ventricle is normal in size and function. Atria: The left atrial size is normal. Right atrial size is normal. There is no Doppler evidence for an interatrial shunt. Mitral Valve: The mitral valve leaflets appear normal. There is no evidence of stenosis, fluttering, or prolapse. There is trace mitral regurgitation. Aortic Valve: The aortic valve is trileaflet. The aortic valve opens well. There is no aortic valve stenosis. No aortic regurgitation is present. Tricuspid Valve: The tricuspid valve leaflets are thin and pliable. There is a trace or physiologic amount of tricuspid regurgitation. Pulmonary artery pressures cannot be estimated because of the lack of a measurable TR jet velocity but the IVC suggests a CVP of around 3 mmHg. Pulmonic Valve: The pulmonic valve is not well seen, but is grossly normal. There is a trace or physiologic amount of pulmonic regurgitation. Great Vessels: The aortic root is normal size. The ascending aorta is normal in size. The aortic arch is normal in size. The IVC is of normal diameter and collapses greater than 50% with a sniff. This suggests a low right atrial pressure of 3 mm Hg. Pericardium/ Pleura There is no pericardial effusion. MMode/2D Measurements & Calculations LVIDd: 4.2 cm LVOT diam: 2.0 cm LVIDs: 2.7 cm Ao Arch Diam (Prox Trans): 2.0 cm FS: 35.7 % IVSd: 0.93 cm LVPWd: 0.90 cm LV bhakta. diameter/BSA (cm/m^2): 2.1 LV sys. diameter/BSA (cm/m^2): 1.3 LA A2 area: 15.6 cm2 RA long axis: 4.8 cm LA A4 area: 13.6 cm2 RA area: 15.4 cm2 LA length (vol): 4.5 cm RA vol: 41.7 ml LA vol: 39.6 ml RA : 20.7 ml/m2 LA vol index: 19.6 ml/m2 IVC diam: 0.96 cm RVD1 (basal): 3.0 cm RVD2 (mid): 2.7 cm TAPSE: 2.5 cm Doppler Measurements & Calculations Ao V2 max: 125.2 cm/sec LVOT Max Jacinto: 103.3 cm/sec Ao V2 mean: 83.0 cm/sec LV V1 max P.3 mmHg Ao max P.3 mmHg LV V1 VTI: 21.5 cm Ao mean P.2 mmHg MINGO(I,D): 2.7 cm2 Ao V2 VTI: 25.1 cm MINGO(V,D): 2.6 cm2 sev ratio: 0.85 MINGO indexed to BSA (cm^2/m^2): 1.4 MV E max jacinto: 92.0 cm/sec PA V2 max: 81.9 cm/sec MV A max jacinto: 54.4 cm/sec PA V2 mean: 53.1 cm/sec MV E/A: 1.7 PA mean P.3 mmHg Med Peak E' Jacinto: 13.0 cm/sec PA pr(Accel): 37.9 mmHg E/E' med: 7.1 Lat Peak E' Jacinto: 12.5 cm/sec E/E' lat: 7.4 E/e' average: 7.2 MV dec time: 0.17 sec SVRANGEL): 68.9 ml Electronically signed by: Sofi Reynolds M.D. on Reading Physician:08/12/2024 01:03 AM
--- NOTE | 2024-08-11 10:21 | EKG_ITS ---
[facility] [id number] [place] [address] Test Date: 2024-08-11 Pat Name: Awilda Tony Department: Room: Gender: Female Svp: : 2000 Requested By: Order Number: [id number] Reading MD: Tyler Christianson MD Measurements Intervals [place] Rate: 67 P: 16 MA: 144 QRS: 87 QRSD: 82 T: 45 QT: 396 QTc: 418 Interpretive Statements Normal sinus rhythm Electronically Signed On 08-11-2024 10:39:47 PDT by Tyler Christianson MD
[2024-08-11 10:24] LABS: Appearance Urine UA CLEAR; Bilirubin Urine UA NEGATIVE (NEGATIVE); Color Urine UA YELLOW; Glucose Urine UA NEGATIVE (Negative); Ketones Urine UA NEGATIVE (NEGATIVE); Leukocyte Esterase Urine UA NEGATIVE (NEGATIVE); Nitrite Urine UA NEGATIVE (Negative); Occult Blood Urine UA NEGATIVE (Negative); Protein Urine UA NEGATIVE (Negative); Urobilinogen Urine UA 0.2 E.U./dL (0.2)
[2024-08-11 10:26] LABS: Urine Volume 10mL (spun); pH Urine UA 5.5 (4.5-8.0)
[2024-08-11 10:27] LABS: Bacteria Urine None Seen; RBC Urine None Seen (0-5/HPF); Squamous Epithelial Cell Urine 1-5 /HPF (0-5/HPF); WBC Urine None Seen (0-5/HPF)
[2024-08-11 10:59] LABS: Add Manual Diff / Slide Review NO; Basophils Absolute Auto 0 /uL (0-100); Basophils Percent Auto 0.4 % (0-2); Eosinophils Absolute Auto 100 /uL (0-450); Eosinophils Percent Auto 1.7 % (2-4); Hematocrit 34.9 % (36-46); Hemoglobin 11.7 g/dL (12.0-16.0); Lymphocytes Absolute Auto 1800 /uL (1100-4500); Lymphocytes Percent Auto 21.7 % (25-40); Mean Corpuscular HGB Conc 33.5 % (30-36); Mean Corpuscular Hemoglobin 24.9 PG (26-34); Mean Corpuscular Volume 74.5 fL (80-100); Monocytes Absolute Auto 500 /uL (0-900); Monocytes Percent Auto 6.7 % (3-14); Neutrophils Absolute Auto 5700 /uL (1500-7000); Neutrophils Percent Auto 69.5 % (50-75); Platelet Count 296 X10^3/uL (150-400); Red Blood Cell Count 4.68 X10^6/uL (4.0-5.2); Red Cell Distribution Width 15.6 % (11.6-14.8); White Blood Cell Count 8.2 X10^3/uL (4.5-11.0)
[2024-08-11 11:05] LABS: Alanine Aminotransferase 33 IU/L (<35); Albumin 4.5 g/dL (3.5-5.0); Albumin Globulin Ratio 1.5 (1.0-2.8); Alkaline Phosphatase 72 U/L (38-126); Aspartate Aminotransferase 28 IU/L (14-36); Bilirubin Total 0.5 mg/dL (0.2-1.3); Blood Urea Nitrogen 13 mg/dL (7-17); Calcium 9.4 mg/dL (8.4-10.2); Carbon Dioxide 27 mmol/L (22-32); Chloride 102 mmol/L (98-107); Estimated Glomerular Filt Rate > 60 mL/min (>60); Glucose 79 mg/dL (70-99); HEMOLYSIS < 15 (0-50); Potassium 4.1 mmol/L (3.4-5.1); Sodium 138 mmol/L (137-145); Total Protein 7.5 g/dL (6.3-8.2)
== END ==
LOC: ECHO 09:12
PROVIDERS: Referring Provider Chiropractor; Visit Provider Chiropractor
DX: R00.0 Tachycardia, unspecified (principal); E11.9 Type 2 diabetes mellitus without complications
CPT/HCPCS: 36415; 80053; 81001; 85025; 93005; 93010; 93306